=== PATIENT | male | born 1935 | race Caucasian/White ===

== ENCOUNTER 2023-09-16 14:08 | Inpatient (IN) | payer MEDICARE, OTHER, SELFPAY ==
[2023-09-16] VITALS (8 sets, daily range): BP systolic 108–149; BP diastolic 63–89; BMI 28.1
--- NOTE | 2023-09-16 11:36 | ED.GENMED ---
History of Present Illness
General
Chief Complaint: Breathing Problem
Source: patient
Exam Limitations: none
Time Seen by Provider: 09/16/23 11:09
Nursing documentation reviewed up to this point in time: agreed with
Travel History
Have you had any contact with someone who has COVID-19?: No
Do you have any symptoms of coronavirus? Fever > 100 degrees, chills, cough, shortness of breath, sore throat, loss of taste or smell, muscle aches, or headache?: Yes
Symptoms:: see triage note
History of Present Illness
History of Present Illness:
pt is a 87 y/o M with h/o afib s/p pacer, CHF on lasix 80 mg daily, cad, pulm htn,
here with sob
pt says he has been feeling a little wors th epast 2 days but today he started coughing a bit and then after being wheeled to the bathroom didn't have the strength to get up
has noticed increasing edema in legs
took his lasix this mornin 60 mg
no fever, chest pain, vomiting, syncope
pt was sent in by the doctor at his facility who thought he sounded full of fluid
Past History
Past History
ED Past Medical History: Arrthythmia (Atrial fib), CAD, CHF, COPD, HTN, Hypercholesterolemia, RI, Psychiatric (Depressio) and Other (Back pain, PNA, Bowel Obstruction, Renal calculus, Inguinal hernia, C2 fracture with right hand Numbness)
ED Past Surgical History: Cardiac (Pacemaker, Stents X 4) and Other (Parathyroidectomy)
Social History
Tobacco: Former smoker (Smoked a Pipe)
Alcohol: None
Drug: None
Personal:
Living: penitentiary
Employment: Retired
Family History
Family History: Other (Noncontributory)
Review of Systems
Review of Systems
Allergies reviewed?: Yes
All Other Systems: Not applicable
Phy Exam
Physical Exam
Physical Exam:
GENERAL: Alert , mild tachypnea
EYE: pupils equal and reactive
NECK: Supple
ENT: o/p clr, mmm.
CARDIAC: Paced, moderate edema bilateral lower extremities with some skin changes, erythema to the anterior tibial region
LUNGS: Diminished, Rales at his bases, mildly tachypneic,
ABDOMEN: Soft, without focal tenderness, no r/g, no cvat, normal bowel sounds
NEUROLOGICAL: Alert and oriented, no focal neuro deficits
SKIN: Warm and dry, skin intact.
MUSCULOSKELETAL: Mild to moderate edema edema, well perfused. neg eloisa's sign
PSYCH: Normal and appropriate interaction.
Scores
Heart Failure Risk
Heart Failure Risk Score: Not Applicable
Course
Orders/Labs/Results
Orders:
Orders
09/16/23
Electrocardiogram (*1) Stat
Reason for Study: Chest Pain
Comment: DONE
09/16/23 Lunch
Cholesterol Lowering
At Your Request: Full Participation
Does patient need a safe tray?: No
Fluid Restriction: 1500 mL/day (50 oz)
Cholesterol Lowering: Sodium, 2 Gram
09/16/23 11:35
Cardiac Monitoring- Treatment ONCE
CR Chest - 2 Views Urgent
Comment:
Reason For Exam: fatigue, cough, sob
09/16/23 11:39
COVID-19 Antigen Urgent
Source: Nasal Swab
Complete Blood Count/With Diff Urgent
Influenza A+B Rapid Molecular Urgent
DAWSON Source: Nasal Swab
Specimen Description:
09/16/23 12:09
Comprehensive Metabolic Panel Urgent
NT-proBNP Urgent
Troponin I Urgent
09/16/23 13:10
Furosemide [Lasix] 40 mg IV NOW STA
09/16/23 13:45
Admit/Transfer Patient As Directed
Co-Sign Provider:
Level of Care: Inpatient admission
Assign to:: Telemetry
Physician / Group: seymour/hospitalist
Diagnosis: AECHF
Reason for Telemetry: Acute Heart Failure
Date to Stop Telemetry: 09/19/23
Time to Stop Telemetry: 11:00
Reason for Hospitalization: aechf
Expected length of stay greater than two midnights?: Yes
ELOS- Estimated Length of Stay in days: 4
I certify the patient meets the requirements for IP care: Yes
09/16/23 13:48
Code Status As Directed
Resuscitation Status: Full Code
09/16/23 14:59
Echo 2D MMode Color/Doppler Routine
Reason for Study: heart failure
CARDIOLOGY CONSULT Routine
Consulting Provider: Jarrett Puga
Was physician already notified: Yes
09/16/23 15:22
Albuterol [ProAIR HFA INHALER] 2 puff INH R Q4HPRN PRN
Guaifenesin Dm (Sugar Free) [Safetussin Dm (Sugar/Alcohol Free)] 200 mg PO Q4HPRN PRN
Tramadol HCl [Ultram] 50 mg PO [id number] PRN
Zolpidem Tartrate [Ambien] 5 mg PO HSPRN PRN
cycloSPORINE [Restasis 0.05% Ophthalmic Emulsion] 1 drops BOTH EYES Q12H
09/16/23 15:22
HF DIETARY CONSULT Routine
HF EDUCATOR CONSULT Routine
Comment:
Activity As Directed
Activity Level: Out of Bed-Early Mobility
Intake/ Output As Directed
Frequency: Per unit guidelines
Patient Education As Directed
Type: CHF folder
Comment: give on admission. Document in Interdisciplinary Education record
Sleep Apnea Assessment by RN As Directed
Comment:
Physician Instructions:
Vital Signs As Directed
Frequency: Other
Additional Instructions:: Q12 or per unit guidelines if more frequent.
Weight As Directed
Frequency: Daily
Type of Scale: Standing Scale
Comment: Daily morning weight. If unable to stand, use balanced bed scale.
Weight As Directed
Frequency: Once
Type of Scale: Standing Scale
Comment: Upon Admission. If unable to stand, use balanced bed scale.
Pulse Ox/cont/shift [RESP] Routine
Quantity: 1
Special Instructions: Daily pulse oximetry at rest. If greater than 92% at rest also obtain pulse oximetry
while ambulating as tolerated.
DX Deep Vein Thrombosis Video Routine
09/16/23 16:00
Sildenafil Citrate [Revatio] 20 mg PO TID
09/16/23 16:15
Methylsalicylate/Menthol [BenGay-Like] See Dose Instructions TOPICAL BIDPRN PRN
09/16/23 18:34
Troponin I Q6H
Comment: at admission & every 6 hours x 2 (3 total), ECG to be done with each level
09/16/23 19:00
Furosemide [Lasix] 80 mg IV BID AT 0800,1600
09/16/23 20:00
Carvedilol [Coreg] 6.25 mg PO BID
Heparin 5,000 units SC Q12
09/17/23 00:14
Troponin I Q6H
Comment: at admission & every 6 hours x 2 (3 total), ECG to be done with each level
09/17/23 05:51
Basic Metabolic Panel IN AM
Complete Blood Count/With Diff IN AM
Magnesium IN AM
09/17/23 08:00
Allopurinol [Zyloprim] 100 mg PO DAILY
Aspirin Chewable [Low Strength Aspirin] 81 mg PO DAILY
Finasteride [Proscar] 5 mg PO DAILY
Pravastatin Sodium [Pravachol] 80 mg PO DAILY
Psyllium [Metamucil, Konsyl] 1 packet PO DAILY
09/18/23 06:00
Basic Metabolic Panel IN AM
09/19/23 06:00
Basic Metabolic Panel IN AM
09/19/23 11:00
DC Protocol for Telemetry ONCE
Abnormal Lab Results
09/16/23 09/16/23
11:39 12:09
RBC 3.80 L 10^6/uL
(4.70-6.10)
Hgb 11.9 L g/dL
(13.0-18.0)
Hct 36.0 L %
(39.0-52.0)
MCV 94.7 H fL
(80.0-94.0)
MCH 31.3 H pg
(27.0-31.0)
RDW 17.2 H %
(11.5-14.5)
MPV 11.7 H fL
(7.4-10.4)
Absolute Lymphs (auto) 0.4 L 10^3/uL
(1.2-3.4)
Neutrophils % 82.5 H %
(42.2-75.2)
Lymphocytes % 6.0 L %
(20.5-51.1)
BUN 57 H mg/dl
(9-20)
Creatinine 2.0 H mg/dL
(0.7-1.3)
Troponin I 0.118 H* ng/ml
Total Protein 5.3 L g/dl
(6.3-8.2)
Albumin 3.0 L g/dl
(3.5-5.0)
09/16/23 11:39
09/16/23 12:09
Vital Signs
Initial and Last Documented VS:
Initial Vital Signs
Temp Pulse Resp BP Pulse Ox
98.0 F 63 20 136/85 86
09/16/23 10:55 09/16/23 10:55 09/16/23 10:55 09/16/23 10:55 09/16/23 10:55
Last Documented Vital Signs
Temp Pulse Resp BP Pulse Ox
97.4 F 62 14 139/78 99
09/17/23 03:28 09/17/23 09:02 09/17/23 08:41 09/17/23 09:02 09/17/23 07:08
MDM/Problems Addressed
Differential Diagnosis Includes:
pna, chf, pulm edema
MDM/Problems Addressed:
alec meza 87 y/o F from heartis; h/o CHF on lasix with preserved EF; here with inc LE edema and sob the past 2 days, today was coughing and got wheeled to BR and then was too weak to get off toilet; has home o2 2L
86% RA, 96% on 2L, mildlhy tachypneic, diminished and rales b/l bases, symmetric edema LE;
no fever, wbc normal; cr 2.0 (bseline 1.9), trop 0.1 (usually 0.2), [place] 36769, cxr pulm edema; got oral lasix 60 mg po today, adding 40 mg iv x 1
*Critical Care Note
Total Time (30-74mins, 75-104mins- exclusive of procedures): Not Applicable
ED Attending Note
-
Portions of this chart may have been created with voice recognition software.� Occasional wrong word or��sound alike� substitutions may have occurred due to the inherent limitations of voice recognition software.
Discharge Plan
Departure
Patient Disposition: Admit
Date of Disposition: 09/16/23
Time of Disposition: 13:12
Admit to: Telemetry
Presentation/result/management discussed w/ accepting MD/DO: Hospitalist
Condition: Fair
Covid-19: Not Applicable
Discharge Problem:
Pulmonary edema
Interventions
Interventions:
*Risk Screen - Suicide Last Done: 09/16/23 10:55
*General Assessment Last Done: 09/16/23 10:55
*Neglect/Abuse Screening Last Done: 09/16/23 10:55
*ED COVID-19 Vaccine History Last Done: 09/16/23 10:55
*Nursing Disposition Last Done: 09/16/23 15:12
ED- Cardiac Assessment Last Done: 09/16/23 11:26
ED- Pulmonary Assessment Last Done: 09/16/23 11:26
Discharge Date and Time
Discharge Date/Time: 09/16/23 15:12
[2023-09-16 12:02] LABS: % Basophils 0.9 % (0-2); % Eosinophils 2.6 % (0-6); % Immature Granulocytes 0.2 % (0-0.5); % Monocytes 7.8 % (1.7-9.3); % Neutrophils 82.5 % (42.2-75.2); Absolute Basophils 0.1 10^3/uL (0-0.2); Absolute Eosinophils 0.2 10^3/uL (0-0.7); Absolute Lymphocytes 0.4 10^3/uL (1.2-3.4); Absolute Monocytes 0.5 10^3/uL (0.1-0.6); Absolute Neutrophils 4.8 10^3/uL (1.4-6.5); Hemoglobin 11.9 g/dL (13.0-18.0); Mean Corp Hgb Conc. 33.1 g/dL (33.0-37.0); Mean Corpuscular Hgb 31.3 pg (27.0-31.0); Mean Corpuscular Volume 94.7 fL (80.0-94.0); Mean Platelet Volume 11.7 fL (7.4-10.4); Nucleated Red Blood Cells % 0 % (-); Platelet Count 161 10^3/uL (130-400); Red Cell Dist. Width 17.2 % (11.5-14.5); White Blood Cell Count 5.9 10^3/uL (4.8-10.8)
[2023-09-16 12:30] LABS: COVID-19 Antigen Negative (Negative)
[2023-09-16 12:52] LABS: ALT (SGPT) 12 U/L (0-50); AST (SGOT) 25 U/L (17-59); Alkaline Phosphatase 108 U/L (38-126); Blood Urea Nitrogen 57 mg/dl (9-20); Calcium 9.3 mg/dl (8.4-10.2); Carbon Dioxide 24 mmol/L (22-30); Chloride 103 mmol/L (98-107); Estimated Creatinine Clearance 27 ml/min; Glucose 89 mg/dl (70-99); Potassium 4.3 mmol/L (3.5-5.1); Sodium 135 mmol/L (135-145); Total Bilirubin 0.8 mg/dl (0.2-1.3); Total Protein 5.3 g/dl (6.3-8.2)
[2023-09-16 12:58] LABS: NT-proBNP 17100 pg/ml; Troponin I 0.118 ng/ml
--- NOTE | 2023-09-16 13:34 | HPS.HSE ---
Addendum entered and electronically signed by Nick Nassar MD 09/16/23 14:24:
In regards for CODE STATUS patient stated he wanted to be comfortable and to call his son to confirm his CODE STATUS. Updated both sons over the phone in detail. Both son's confirmed patient is DNR/DNI. CODE STATUS changed.
Original Note:
Family Physician
-
Family Physician: Aleja Antoine DO
Chief Complaint
-
Weakness
History of Present Illness
87-year-old male with extensive past medical and cardiac history who is presenting with complaints of coughing and severe weakness. Patient said he sat in the bathroom was unable to get up due to severe weakness. Patient also complaining of severe
lower extremity edema. Also stating of abdominal distention. States of cough with intermittent sputum production. Denies any fevers or chills. Denies any lightheaded or dizziness. States remains on 2 L of oxygenation. Denies any recent changes
in his medication. In the ER patient was found to have proBNP of 17,000. Patient received 40 mg IV Lasix. Currently states trying to obtain a sputum sample. Denies any chest pain. Denies any nausea vomiting abdominal pain. Denies any
lightheaded or dizziness. Denies any problem with urinations or bowel movements.
Medical History
Past Medical History
Past Medical History: Reports Other
Additional Past Medical History:
Atrial fib permanent,
Pacemaker implantation
Chronic HFpEF
COPD
Primary hypertension
CAD
CKD stage III
Pulmonary hypertension
Chronic hypoxic respiratory insufficiency
Hyperlipidemia
BPH
Gout
Chronic ambulatory dysfunction
Past Surgical History: Reports Other
Additional Past Surgical History:
Pacemaker plantation
Parathyroidectomy
CAD status post stents
Social History
Tobacco: Former Smoker
Personal:
Living: Assisted Living
Family History
Family History: Not pertinent
Allergies / Home Medications
Allergies reflects when Allergies were last updated in [facility].
Home Medications with original date entered in [facility]
Allergy/Medication List:
Allergies
Allergy/AdvReac Type Severity Reaction Status Date / Time
latex Allergy Rash Verified 03/15/23 16:20
Sulfa (Sulfonamide Allergy Rash Verified 03/15/23 16:20
Antibiotics)
Home Medications
allopurinol 100 mg tablet 100 mg PO DAILY Gout 12/01/22
cyclosporine 0.05 % eye drops in a dropperette (Restasis) 1 drp BOTH EYES Q12H DRY EYES 12/01/22
docusate sodium 100 mg capsule (Colace) 100 mg PO DAILYPRN PRN CONSTIPATION 12/01/22
dutasteride 0.5 mg capsule 0.5 mg PO DAILY Urinary Issue 12/01/22
fluticasone propionate 50 mcg/actuation nasal spray,suspension 1 spray intranasal DAILYPRN PRN allergic rhinitis 12/01/22
hydrocortisone 1 % topical cream (Preparation H Hydrocortisone) 1 applic TN BIDPRN PRN HEMORRHOIDS 12/01/22
pravastatin 80 mg tablet 80 mg PO DAILY High Cholesterol 12/01/22
sildenafil (pulm.hypertension) 20 mg tablet 20 mg PO TID PULM HYPERTENSION 12/01/22
zolpidem 5 mg tablet (Ambien) 5 mg PO HS Sleep 12/01/22
aspirin 81 mg chewable tablet 81 mg PO DAILY Heart disease/condition #30 tabs 12/06/22
carvedilol 6.25 mg tablet 6.25 mg PO BID Heart Failure #60 tabs 12/06/22
acetaminophen 325 mg tablet 650 mg PO Q6HPRN PRN mild pain/fever 01/27/23
psyllium 1 packet PO DAILY Constipation 01/27/23
sacubitril 24 mg-valsartan 26 mg tablet (Entresto) 1 tab PO BID #60 tabs 03/17/23
albuterol sulfate 90 mcg/actuation aerosol inhaler 2 puff inhalation R Q4HPRN PRN sob 09/16/23
amoxicillin 500 mg capsule 2,000 mg PO DAILYPRN PRN 1 hr prior to dental procedures 09/16/23
bismuth subsalicylate 262 mg/15 mL oral suspension (Pepto-Bismol) 524 mg PO TIDPRN PRN upset stomach 09/16/23
dextromethorphan-guaifenesin 10 mg-100 mg/5 mL oral liquid 10 ml PO Q4H PRN cough 09/16/23
furosemide 80 mg tablet 80 mg PO DAILY 09/16/23
loperamide 2 mg tablet (Anti-Diarrheal (loperamide)) 2 mg PO Q8HPRN PRN diarrhea 09/16/23
menthol-herbal drugs lozenges (Ricola lozenges) 1 елена mucous membrane QIDPRN PRN cough 09/16/23
methyl salicylate-menthol topical cream 1 applic topical BID PRN upper back/post neck area 09/16/23
polyethylene glycol 3350 17 gram oral powder packet 17 g PO DAILY PRN constipation 09/16/23
tramadol 50 mg tablet 50 mg PO Q6H PRN mild pain 09/16/23
Review of Systems
-
A 12 point ROS was completed and negative except as noted: Yes
Physical Exam
Vital Signs
Vital Signs
Temp Pulse Resp BP Pulse Ox
98.0 F 61 22 127/79 100
09/16/23 10:55 09/16/23 12:45 09/16/23 12:45 09/16/23 12:00 09/16/23 12:45
Physical Exam
General: Well Developed, Well Nourished and No Apparent Distress
HEENT: NormoCephalic, Moist mucous membranes, Atraumatic and Oxygen
Respiratory: Rhonchi
Cardiac: S1/S2 and Regular Rhythm; No Murmur or Rub
GI: Soft, Non Tender, Non Distended and Normal Bowel Sounds; No Organomegaly
Rectal: Deferred by Provider
Musculoskeletal: No Clubbing, No Cyanosis, Edema, Left Lower Extremity, Edema, Right Lower Extremity and No Edema
Skin: No Rash
Neuro: Awake, AO x 3, No Motor Deficits and Nonfocal/grossly intact
Psych: Calm
Laboratory Results
-
09/16/23 11:39
09/16/23 12:09
Laboratory Results
Total Bilirubin 0.8 mg/dl (0.2-1.3) 09/16/23 12:09
AST 25 U/L (17-59) 09/16/23 12:09
ALT 12 U/L (0-50) 09/16/23 12:09
Alkaline Phosphatase 108 U/L (38-126) 09/16/23 12:09
Troponin I 0.118 ng/ml H* 09/16/23 12:09
Impression/Plan
-
#Acute on chronic diastolic heart failure exacerbation
#Coronary artery disease status post stents
Start patient on 60 mg of IV Lasix twice daily
Monitor creatinine closely
proBNP noted
Chest x-ray pending
Check echocardiogram
Hold Entresto to allow for permissive hypertension with diuresis
Strict I's and O's
Daily weights
Cardiology evaluation
# Elevated troponin likely in the setting of acute heart failure exacerbation, CKD, hypoxemia
Continue to trend troponin
Continue with aspirin
EKG with ventricular paced rhythm
No chest pain
#Permanent atrial fibrillation
Pacemaker implantation
Continue device interrogation
Continue with carvedilol and aspirin
Not on anticoagulants due to falls and epistaxis
#CKD3
Monitor creatinine closely with diuresis
#COPD not in acute exacerbation
Continue with inhalers
Pulmonary hypertension
Continue home regimen sildenafil 20 mg 3 times daily
Hyperlipidemia
Continue statin
#BPH
continue with dutasteride 0.5 mg daily
#Gout
Continue allopurinol 100 mg daily
#Chronic ambulatory dysfunction
- PT/OT/case management
#DVT ppx: SC heparin
#Code: Full code
I spent a total of 79 minutes with the patient or on the floor. More than 50% of this time involved counseling and coordination of care.
[2023-09-16] MEDS: LASIX 40 MG IV (14:02)
--- NOTE | 2023-09-16 15:09 | CON.CAR ---
Addendum entered and electronically signed by Jarrett Puga MD 09/16/23 16:49:
I saw and examined the patient.
The Cooker Chip's note was reviewed and I agree with the note.
Comment:
GEN: No distress, awake, Ox3
HEENT: supple, anicteric, mmm
LUNGS: CTA, no wheezes/rales
CV: Reg, S1/S2, 1/6 syst LSB, S3+
ABD: soft, BS+, NT/ND
EXT: ++ edema
NEURO: Gross non-focal
SKIN: No rash
plan:
He has an extensive past medical history including chronic heart failure preserved ejection fraction, permanent A-fib, pacemaker, coronary disease, COPD on home oxygen, hypertension, hyperlipidemia, and CKD 3. He presents with acute heart failure
with a 30 pound weight gain over the past several months. proBNP is markedly elevated at 17,000 with chest x-ray consistent with congestive heart failure with effusions. EKG is V-paced with underlying atrial fibrillation.
His creatinine is up to 2.0. Continue carvedilol. Hold Entresto for now. Agree with aggressive diuresis with 60 mg IV twice daily and follow kidney function.
His atrial fibrillation is permanent he is not anticoagulated because of a history of bleeding.
Hopefully kidney function settles and we can restart Entresto. Could consider Jardiance as well.
Continue sildenafil.
Original Note:
Consultation
Consultation Request
Date/Time Consultation Requested: 09/16/2023
Date/Time Consultation Performed: 09/16/2023
Requesting Provider: Dr. Nassar
Performing Provider: Patricia Webster PA-C for Dr. Puga
Reason for Consultation: Shortness of breath, weight gain, heart failure
Medical History
-
History of Present Illness:
87-year-old male with a history for permanent A-fib, PPM, coronary artery disease, chronic HFpEF, COPD/pulmonary hypertension on chronic oxygen therapy, hypertension, hyperlipidemia, HI, depression, back pain polyp, nonobstructing, kidney stones,
inguinal hernia presents with short of breath, weight gain and cough for several days. He was seen by outpatient cardiology in July and was thought to have evidence of volume overload and Lasix was temporarily increased at that time. In mid August
his half-way community contacted the office again for evidence of volume overload and Lasix was increased temporarily for a second time. However his symptoms have continued to progress prompting him to come to the emergency department. proBNP
17,100, chest x-ray cardiomegaly with mild to moderate heart failure with small bilateral pleural effusions. EKG showed ventricular paced rhythm. Creatinine stable at 11.9, creatinine 2.0. At time of this evaluation patient resting in bed wearing
oxygen. He continues to complain of cough and intermittent shortness of breath. He denies chest pain.
PMH:
Chronic heart failure with preserved EF
CAD
s/p prior HI in 2008 and 2016 - details unclear
Permanent atrial fibrillation
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
s/p generator change
Pulmonary hypertension
HTN
HLD
COPD
h/o recurrent epistaxis
recurrent falls with recent cervical fracture
Moderate mitral regurgitation
Past Medical History
Past Medical History: Other (See HPI)
Past Surgical History: Cardiac (Prior cardiac stents in 2008, 2016, PPM) and Other (parathyroidectomy)
Social History
Tobacco: Former Smoker
Alcohol: None
Drug: None
Personal:
Living: Assisted Living ([facility])
Employment: Retired
Family History
Family History: Cancer
Allergies / Home Medications
Allergy/AdvReac Type Severity Reaction Status Date / Time
latex Allergy Rash Verified 03/15/23 16:20
Sulfa (Sulfonamide Allergy Rash Verified 03/15/23 16:20
Antibiotics)
�Medication �Instructions �Recorded �Confirmed �Type
allopurinol 100 mg tablet 100 mg PO DAILY Gout 12/01/22 09/16/23 History
cyclosporine 0.05 % eye drops in a 1 drp BOTH EYES Q12H DRY EYES 12/01/22 09/16/23 History
dropperette (Restasis)
docusate sodium 100 mg capsule 100 mg PO DAILYPRN PRN CONSTIPATION 12/01/22 09/16/23 History
(Colace)
dutasteride 0.5 mg capsule 0.5 mg PO DAILY Urinary Issue 12/01/22 09/16/23 History
fluticasone propionate 50 1 spray intranasal DAILYPRN PRN 12/01/22 09/16/23 History
mcg/actuation nasal allergic rhinitis
spray,suspension
hydrocortisone 1 % topical cream 1 applic UT BIDPRN PRN HEMORRHOIDS 12/01/22 09/16/23 History
(Preparation H Hydrocortisone)
pravastatin 80 mg tablet 80 mg PO DAILY High Cholesterol 12/01/22 09/16/23 History
sildenafil (pulm.hypertension) 20 20 mg PO TID PULM HYPERTENSION 12/01/22 09/16/23 History
mg tablet
zolpidem 5 mg tablet (Ambien) 5 mg PO HS Sleep 12/01/22 09/16/23 History
aspirin 81 mg chewable tablet 81 mg PO DAILY Heart 12/06/22 09/16/23 Rx
disease/condition #30 tabs
carvedilol 6.25 mg tablet 6.25 mg PO BID Heart Failure #60 12/06/22 09/16/23 Rx
tabs
acetaminophen 325 mg tablet 650 mg PO Q6HPRN PRN mild 01/27/23 09/16/23 History
pain/fever
psyllium 1 packet PO DAILY Constipation 01/27/23 09/16/23 History
sacubitril 24 mg-valsartan 26 mg 1 tab PO BID #60 tabs 03/17/23 09/16/23 Rx
tablet (Entresto)
albuterol sulfate 90 mcg/actuation 2 puff inhalation R Q4HPRN PRN sob 09/16/23 09/16/23 History
aerosol inhaler
amoxicillin 500 mg capsule 2,000 mg PO DAILYPRN PRN 1 hr 09/16/23 09/16/23 History
prior to dental procedures
bismuth subsalicylate 262 mg/15 mL 524 mg PO TIDPRN PRN upset stomach 09/16/23 09/16/23 History
oral suspension (Pepto-Bismol)
dextromethorphan-guaifenesin 10 10 ml PO Q4H PRN cough 09/16/23 09/16/23 History
mg-100 mg/5 mL oral liquid
furosemide 80 mg tablet 80 mg PO DAILY 09/16/23 09/16/23 History
loperamide 2 mg tablet 2 mg PO Q8HPRN PRN diarrhea 09/16/23 09/16/23 History
(Anti-Diarrheal (loperamide))
menthol-herbal drugs lozenges 1 елена mucous membrane QIDPRN PRN 09/16/23 09/16/23 History
(Ricola lozenges) cough
methyl salicylate-menthol topical 1 applic topical BID PRN upper 09/16/23 09/16/23 History
cream back/post neck area
polyethylene glycol 3350 17 gram 17 g PO DAILY PRN constipation 09/16/23 09/16/23 History
oral powder packet
tramadol 50 mg tablet 50 mg PO Q6H PRN mild pain 09/16/23 09/16/23 History
Review of Systems
-
History Source: Patient
All other systems: Negative unless noted
Physical Exam
Vital Signs
Temp Pulse Resp BP Pulse Ox
98.0 F 61 22 127/79 100
09/16/23 10:55 09/16/23 12:45 09/16/23 12:45 09/16/23 12:00 09/16/23 12:45
GEN: No distress, awake, Ox3
HEENT: supple, anicteric, mmm; very hard of hearing
LUNGS: carackles at bases otherwise CTA, no wheezes/rales
CV: Reg, S1/S2, 2/6 murmur, no rub or gallops
ABD: soft, BS+, NT/ND
EXT: +1 bilateral lower extremity edema right greater than left, right leg with gauze wrap from wound. Left leg with Band-Aid on calf, red skin changes consistent with chronic stasis
NEURO: Gross non-focal
SKIN: No rash, warm, dry, pink
Lab Results
09/16/23 11:39
09/16/23 12:09
Troponin I 0.118 ng/ml H* 09/16/23 12:09
Xuj-P-Ychqfpnzhce Pept 93214 pg/ml 09/16/23 12:09
Impression / Plan
-
Family Physician:� Aleja Antoine, DO
House Rn: Dr. Story
Impression:
Presents 09/16/2023 with cough, weakness, weight gain, shortness of breath and lower extremity edema
Acute on chronic HFpEF, proBNP 55765
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
abnormal troponin, suspect nonischemic myocardial injury secondary to acute heart failure exacerbation
CAD
s/p prior HI in 2008 and 2016 - details unclear
Permanent atrial fibrillation
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
s/p generator change
Pulmonary hypertension
HTN
HLD
COPD
h/o recurrent epistaxis
recurrent falls with recent cervical fracture
Moderate mitral regurgitation
Echo at [facility] 10/13/2022: EF 55-60%, mild
Echo 12/02/2022:�EF 65%, mod MR, mitral sclerosis without stenosis and mean gradient 2 mmHg, aortic sclerosis without stenosis and mild aortic regurgitation
Plan:
-Presents 09/16/2023 with cough, weakness, weight gain, shortness of breath and lower extremity edema
-ProBNP 93405 which is elevated however better than previous admissions where proBNP was greater than 35,000
-Given 40 mg IV in ED with good response.
-Continue to follow daily weights, I&Os.
-Creat elevated at 2.0 on admission, baseline appearing to be around 1.7-1.8. Continue to monitor/trend
-In past patient and son felt he has less frequent HF exacerbations while on Entresto. Can place on hold given CHAD but ideally would like to see pt back on if renal function and BP allow
-CHF education
-Abnormal troponin elevation, initial 0.118 which is lower than previous admissions. Suspect non-ischemic myocardial injury due to acute heart failure. Trend to peak
-Continue medical therapy with Coreg 6.25mg BID.
-H/o CAD - no chest pain and ECG paced. Now DNR continue conservative medical management w/ Coreg, pravastatin and aspirin.
-On sildenafil 20mg TID for history of pulmonary hypertension.
-On chronic home 2 L as outpatient.
-Permanent atrial fibrillation with ventricular pacing. Device interrogated in office 08/02/23 with stable leads and thresholds. Not on OAC due to recurrent severe epistaxis and history of falls. Continue ASA 81 mg
Patient is now DNR/DNI which is reasonable given advanced age and multiple hospital admissions
87-year-old male with a history for permanent A-fib, PPM, coronary artery disease, chronic HFpEF, COPD/pulmonary hypertension on chronic oxygen therapy, hypertension, hyperlipidemia, HI, depression, back pain polyp, nonobstructing, kidney stones,
inguinal hernia presents with short of breath, weight gain and cough for several days. He was seen by outpatient cardiology in July and was thought to have evidence of volume overload and Lasix was temporarily increased at that time. In mid August
his half-way community contacted the office again for evidence of volume overload and Lasix was increased temporarily for a second time. However his symptoms have continued to progress prompting him to come to the emergency department. proBNP
17,100, chest x-ray cardiomegaly with mild to moderate heart failure with small bilateral pleural effusions. EKG showed ventricular paced rhythm. Creatinine stable at 11.9, creatinine 2.0. At time of this evaluation patient resting in bed wearing
oxygen. He continues to complain of cough and intermittent shortness of breath. He denies chest pain.
Data Reviewed
-
EKG: Report Reviewed by me, Discussed with Physician and Discussed with Patient
Radiology: Report Reviewed by me, Discussed with Physician and Discussed with Patient
Labs: Discussed with Physician, Discussed with Nurse and Discussed with Patient
Old Records: Reviewed
--- NOTE | 2023-09-16 15:49 | PTCARENOTE ---
Patient admitted from ER into room 411-01. Vital signs stable. Perineal care provided. Patient incontinent of urine. Condom cath #25 placed. Oriented to room, use of call blanco, and television and bed controls. Patient verbalizes understanding.
Patient is [place] without hearing aides. Understands plan of care and denies questions at this time.
[2023-09-16] MEDS: RESTASIS 0.05% OPHTHALMIC EMULSION 1 DROPS BOTH EYES ×2 (16:12→22:17)
[2023-09-16] MEDS: SAFETUSSIN DM (SUGAR/ALCOHOL FREE) 200 MG PO (16:12)
[2023-09-16] MEDS: REVATIO 20 MG PO ×2 (16:13→22:08)
[2023-09-16] MEDS: LASIX 80 MG IV (18:31)
[2023-09-16] MEDS: COREG 6.25 MG PO (20:40)
[2023-09-16] MEDS: HEPARIN 5000 UNITS SC (20:40)
[2023-09-16] MEDS: AMBIEN 2.5 MG PO (22:09)
[2023-09-16] MEDS: TYLENOL 650 MG PO (23:20)
[2023-09-17] VITALS (8 sets, daily range): BP systolic 113–138; BP diastolic 62–78; BMI 27.7
[2023-09-17 00:48] LABS: Troponin I 0.101 ng/ml
[2023-09-17 06:26] LABS: % Basophils 1.1 % (0-2); % Eosinophils 3.6 % (0-6); % Immature Granulocytes 0.2 % (0-0.5); % Lymphocytes 9.3 % (20.5-51.1); % Monocytes 8.4 % (1.7-9.3); % Neutrophils 77.4 % (42.2-75.2); Absolute Basophils 0.1 10^3/uL (0-0.2); Absolute Eosinophils 0.2 10^3/uL (0-0.7); Absolute Lymphocytes 0.4 10^3/uL (1.2-3.4); Absolute Monocytes 0.4 10^3/uL (0.1-0.6); Absolute Neutrophils 3.4 10^3/uL (1.4-6.5); Hematocrit 33.4 % (39.0-52.0); Hemoglobin 11.3 g/dL (13.0-18.0); Mean Corp Hgb Conc. 33.8 g/dL (33.0-37.0); Mean Corpuscular Volume 91.5 fL (80.0-94.0); Nucleated Red Blood Cells % 0 % (-); Red Blood Cell Count 3.65 10^6/uL (4.70-6.10); Red Cell Dist. Width 16.5 % (11.5-14.5); White Blood Cell Count 4.4 10^3/uL (4.8-10.8)
[2023-09-17 06:56] LABS: Blood Urea Nitrogen 56 mg/dl (9-20); Carbon Dioxide 22 mmol/L (22-30); Chloride 106 mmol/L (98-107); Estimated Creatinine Clearance 27 ml/min; Glucose 107 mg/dl (70-99); Magnesium 2.7 mg/dl (1.6-2.3); Potassium 4.5 mmol/L (3.5-5.1); Sodium 134 mmol/L (135-145)
[2023-09-17 07:09] LABS: Platelet Count 122 10^3/uL (130-400)
[2023-09-17] MEDS: COREG 6.25 MG PO ×2 (09:02→20:00)
[2023-09-17] MEDS: HEPARIN 5000 UNITS SC ×2 (09:02→20:01)
[2023-09-17] MEDS: RESTASIS 0.05% OPHTHALMIC EMULSION 1 DROPS BOTH EYES ×2 (09:03→20:00)
[2023-09-17] MEDS: LASIX 80 MG IV (09:03)
[2023-09-17] MEDS: METAMUCIL, KONSYL 1 PACKET PO (09:03)
[2023-09-17] MEDS: PROSCAR 5 MG PO (09:03)
[2023-09-17] MEDS: PRAVACHOL 80 MG PO (09:03)
[2023-09-17] MEDS: LOW STRENGTH ASPIRIN 81 MG PO (09:03)
[2023-09-17] MEDS: REVATIO 20 MG PO ×3 (09:04→22:11)
[2023-09-17] MEDS: ZYLOPRIM 100 MG PO (09:04)
[2023-09-17] MEDS: FLUSH (NSS) 2 FLUSH IV (09:04)
[2023-09-17] MEDS: TYLENOL 650 MG PO ×2 (09:08→22:38)
--- NOTE | 2023-09-17 10:07 | W.PN.CARDCBS ---
Today's Communication / Plan
-
Continue diuresis while following blood pressure, renal function and electrolytes closely.
Can consider reinitiation of Entresto prior to discharge.
Impression / Plan
-
Family Physician:� Aleja Antoine, DO
Home School Teacher: Dr. Story
Impression:
Presents 09/16/2023 with cough, weakness, weight gain, shortness of breath and lower extremity edema
Acute on chronic HFpEF, proBNP 11660
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
abnormal troponin, suspect nonischemic myocardial injury secondary to acute heart failure exacerbation
CAD
s/p prior [place] in 2008 and 2016 - details unclear
Permanent atrial fibrillation
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
s/p generator change
Pulmonary hypertension
HTN
HLD
COPD
h/o recurrent epistaxis
recurrent falls with recent cervical fracture
Moderate mitral regurgitation
Echo at [facility] 10/13/2022: EF 55-60%, mild
Echo 12/02/2022:�EF 65%, mod MR, mitral sclerosis without stenosis and mean gradient 2 mmHg, aortic sclerosis without stenosis and mild aortic regurgitation
Plan:
-Presents with acute decompensated congestive heart failure (HFpEF) and volume overload, ProBNP 32969 which is elevated however better than previous admissions where proBNP was greater than 35,000
Continue diuresis, currently on Lasix 80 mg IV twice daily. Weight is down 3 pounds over past 24 hours and fluid balance negative. Creatinine stable at 2.0 overnight
Continue to follow daily weights, I&Os and renal function (known chronic kidney disease with baseline creatinine of approximately 1.8).
Entresto on hold given renal insufficiency mild acute insufficiency on chronic insufficiency.
Son felt he has had less frequent HF exacerbations while on Entresto.
Will attempt to resume Entresto this hospital stay as we follow renal function and blood pressure.
Continue medical therapy with Coreg 6.25mg BID
CHF education
-Abnormal troponin elevation, initial 0.118 now down to 0.101. Suspect non-ischemic myocardial injury due to acute heart failure. H/o CAD - no chest pain and ECG paced.
Now DNR continue conservative medical management w/ Coreg, pravastatin and aspirin.
-On sildenafil 20mg TID for history of pulmonary hypertension.
-On chronic home 2 L as outpatient.
-Permanent atrial fibrillation with ventricular pacing.
Not on OAC due to recurrent severe epistaxis and history of falls. Continue ASA 81 mg
-Permanent pacemaker.
Device interrogated in office 08/02/23 with stable leads and thresholds of the Protalextronic device.
Patient is now DNR/DNI which is reasonable given advanced age and multiple hospital admissions
Total time spent today was 50 minutes in preparing to see the patient, seeing the patient and coordination of care. This included review of recent laboratory evaluations, cardiac testing, imaging studies, primary care records, specialty
consultations, hospital records, as well as personally interviewing and examining the patient, which included discussion of their tests, review/ordering medications as well as counseling.
87-year-old male with a history for permanent A-fib, PPM, coronary artery disease, chronic HFpEF, COPD/pulmonary hypertension on chronic oxygen therapy, hypertension, hyperlipidemia, [place], depression, back pain polyp, nonobstructing, kidney stones,
inguinal hernia presents with short of breath, weight gain and cough for several days. He was seen by outpatient cardiology in July and was thought to have evidence of volume overload and Lasix was temporarily increased at that time. In mid August
his fdc community contacted the office again for evidence of volume overload and Lasix was increased temporarily for a second time. However his symptoms have continued to progress prompting him to come to the emergency department. proBNP
17,100, chest x-ray cardiomegaly with mild to moderate heart failure with small bilateral pleural effusions. EKG showed ventricular paced rhythm. Creatinine stable at 11.9, creatinine 2.0. At time of this evaluation patient resting in bed wearing
oxygen. He continues to complain of cough and intermittent shortness of breath. He denies chest pain.
Progress Note - Home School Teacher
Subjective
Date of Service: September 17, 2023
He describes that his breathing is 'all right'. Denies chest pain shortness of breath palpitations or dizziness.
Objective
Labs:
09/17/23 05:51
09/17/23 05:51
Labs
Hgb 11.3 g/dL (13.0-18.0) L 09/17/23 05:51
Hct 33.4 % (39.0-52.0) L 09/17/23 05:51
Plt Count 122 10^3/uL (130-400) L D 09/17/23 05:51
Sodium 134 mmol/L (135-145) L 09/17/23 05:51
Potassium 4.5 mmol/L (3.5-5.1) 09/17/23 05:51
BUN 56 mg/dl (9-20) H 09/17/23 05:51
Creatinine 2.0 mg/dL (0.7-1.3) H 09/17/23 05:51
Glucose 107 mg/dl (70-99) H 09/17/23 05:51
Troponins
09/16/23 09/16/23 09/16/23
11:39 12:09 18:34
Troponin I Cancelled 0.118 H* 0.120 H*
09/17/23
00:14
Troponin I 0.101 H*
Vital Signs and I&O:
Vital Signs
Temp Pulse Resp BP Pulse Ox
97.4 F 62 14 139/78 99
09/17/23 03:28 09/17/23 09:02 09/17/23 08:41 09/17/23 09:02 09/17/23 07:08
Vital Signs
Temp Pulse Resp BP Pulse Ox
97.4 F 62 14 139/78 99
09/17/23 03:28 09/17/23 09:02 09/17/23 08:41 09/17/23 09:02 09/17/23 07:08
Intake & Output
09/15/23 09/16/23 09/17/23 09/18/23
06:59 06:59 06:59 06:59
Output Total 1270 / 1270
Balance -1270 / -1270
Physical Exam
Physical Exam
Elderly gentleman, no acute distress.
Regular rate and rhythm normal S1 and S2, no S3 no S4 there is a grade 1/6 apical holosystolic murmur no rubs.
Lungs are clear to auscultation bilaterally although there is reduced breath sounds at the left lower base. No wheezes or rhonchi. No rales.
Lower extremities with +2 pretibial edema bilaterally
--- NOTE | 2023-09-17 12:45 | W.PN.HOSP.TC ---
Today's Communication/Plan
-
.
Assessment / Plan
Assessment / Plan
Physical Exam
General: Chronically ill looking, No Apparent Distress
HEENT: Normocephalic, Moist mucous membranes, Atraumatic and Oxygen. Hard hearing.
Respiratory: less rales. Limited, no wheezes.
Cardiac: S1/S2
GI: Soft, Non Tender, Non Distended and Normal Bowel Sounds; No Organomegaly
Rectal: No rectal bleeding.
Musculoskeletal: No Clubbing, No Cyanosis, Edema, Left Lower Extremity, Edema, Right Lower Extremity and No Edema
Skin: No Rash
Neuro: Awake, AO to self and surroundings. Weak in general but followed commands.
Psych: Calm
#Acute on chronic diastolic heart failure exacerbation
#Coronary artery disease status post stents
He is not worsening. No sob
Lasix 80 IV twice daily, change back to 60 mg BID since SBP is trending down
Monitor creatinine closely
proBNP elevated
Chest x-ray Cardiomegaly and mild to moderate CHF with small bilateral effusions.
Resume Entresto
Strict I's and O's
Daily weights
Cardiology evaluation
# Elevated troponin, nonischemic myocardial injury secondary to acute heart failure exacerbation
No chest pain or distress
Continue with aspirin
EKG with ventricular paced rhythm
No chest pain
#Permanent atrial fibrillation
Permanent pacemaker.
Device interrogated in office 08/02/23 with stable leads and thresholds of the Medtronic device.
Continue with carvedilol and aspirin
Not on anticoagulants due to falls and epistaxis
#CKD3b
Monitor creatinine closely with diuresis. Stable creatinine
#COPD not in acute exacerbation
Continue with inhalers
Pulmonary hypertension
Continue home regimen sildenafil 20 mg 3 times daily
Hyperlipidemia
Continue statin
# Chronic hypoxic respiratory failure on home O2
sildenafil 20mg TID for history of pulmonary hypertension.
# hyponatremia
# thrombocytopenia
#BPH
continue with dutasteride 0.5 mg daily
#Gout
Continue allopurinol 100 mg daily
#Chronic ambulatory dysfunction
- PT/OT/case management
#DVT ppx: SC heparin
#Code: DNR/DNI which is reasonable given advanced age and multiple hospital admissions
Total time spent to see the patient, examine the patient, review data and lab results, discuss treatment plan with patient, nursing staff around 55 minutes
Anticipated Discharge: > 48 hours
Subjective/Interval History
-
Date of Service: September 17, 2023
Objective Data
-
Labs:
Laboratory Results
09/17/23
05:51
WBC 4.4 L
Hgb 11.3 L
Hct 33.4 L
Plt Count 122 L D
Sodium 134 L
Potassium 4.5
Chloride 106
Carbon Dioxide 22
BUN 56 H
Creatinine 2.0 H
Glucose 107 H
Calcium 9.0
Vital Signs:
Vital Signs
Temp Pulse Resp BP Pulse Ox
97.4 F 61 18 113/62 99
09/17/23 03:28 09/17/23 11:44 09/17/23 11:44 09/17/23 11:44 09/17/23 11:44
I&O
09/16/23 09/17/23 09/18/23
06:59 06:59 06:59
Output Total 1270 / 1270
Balance -1270 / -1270
[2023-09-17] MEDS: ProAIR HFA INHALER 2 PUFF INH ×2 (15:07→22:29)
[2023-09-17] MEDS: LASIX 60 MG IV (16:13)
--- NOTE | 2023-09-17 16:21 | CM ---
[facility] from [facility] with Dx CHF. Room air. Receiving IV Lasix.
Spoke with patient's son Ronnie;
the patient has resided at [facility] since last November.
He has been alert/oriented but very [place], and cannot place his own hearing aides due to poor hand dexterity.
Son states patient also has poor strength in his legs and he feels that the patient has deteriorated in the last few years.
He is assisted with ADLs and is not ambulatory - he is w/c bound.
The patient's DME are a w/c and [employer] portable O2.
The son thinks his father has been getting PT/OT through [facility] agency [facility].
No prior SNF.
PCP - Aleja Antoine
Pharmacy - [facility]
Message to Dr Parada requesting PT/OT Evals.
Plan follow up after PT/OT Evals.
[2023-09-17] MEDS: ENTRESTO 24 MG/26 MG 1 TAB PO (20:00)
[2023-09-17] MEDS: AMBIEN 2.5 MG PO (22:12)
[2023-09-18 03:50] VITALS: BP 121/68
[2023-09-18] MEDS: TYLENOL 650 MG PO ×3 (05:59→21:49)
[2023-09-18 06:00] VITALS: BMI 27.4
[2023-09-18 07:00] VITALS: BP 141/79
[2023-09-18 08:12] LABS: Blood Urea Nitrogen 58 mg/dl (9-20); Calcium 9.2 mg/dl (8.4-10.2); Carbon Dioxide 27 mmol/L (22-30); Chloride 103 mmol/L (98-107); Estimated Creatinine Clearance 29 ml/min; Glucose 99 mg/dl (70-99); Potassium 4.1 mmol/L (3.5-5.1); Sodium 136 mmol/L (135-145); eGFR 36.21
--- NOTE | 2023-09-18 09:00 | W.PN.CARDCBS ---
Today's Communication / Plan
-
Continue diuresis, currently on Lasix 80 mg IV twice daily.
Will likely benefit from another day of intravenous diuresis and then consideration for transition to oral diuretic within the next 24 hours
Will resume Entresto today
Impression / Plan
-
Family Physician:� Aleja Antoine, DO
Plodding Operator: Dr. Story
Impression:
Presents 09/16/2023 with cough, weakness, weight gain, shortness of breath and lower extremity edema
Acute on chronic HFpEF, proBNP 69189
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
abnormal troponin, suspect nonischemic myocardial injury secondary to acute heart failure exacerbation
CAD
s/p prior MT in 2008 and 2016 - details unclear
Permanent atrial fibrillation
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
s/p generator change
Pulmonary hypertension
HTN
HLD
COPD
h/o recurrent epistaxis
recurrent falls with recent cervical fracture
Moderate mitral regurgitation
Echo at [facility] 10/13/2022: EF 55-60%, mild
Echo 12/02/2022:�EF 65%, mod MR, mitral sclerosis without stenosis and mean gradient 2 mmHg, aortic sclerosis without stenosis and mild aortic regurgitation
Plan:
-Presents with acute decompensated congestive heart failure (HFpEF) and volume overload, ProBNP 01560 which is elevated however better than previous admissions where proBNP was greater than 35,000
Continue diuresis, currently on Lasix 80 mg IV twice daily. Weight 185#, down 2 pounds over past 24 hours (down 5 lbs from adm) and fluid balance negative. Creat down to baseline (1.8). JVP is improved.
Will likely benefit from another day of intravenous diuresis and then consideration for transition to oral diuretic within the next 24 hours
Continue to follow daily weights, I&Os and renal function (known chronic kidney disease with baseline creatinine of approximately 1.8).
Entresto had been on hold given renal insufficiency mild acute insufficiency on chronic insufficiency.
Son felt he has had less frequent HF exacerbations while on Entresto.
Will resume Entresto today and follow renal function (would not be surprising to have slight bump in creatinine) and blood pressure.
Continue medical therapy with Coreg 6.25mg BID
CHF education
-Abnormal troponin elevation, initial 0.118 now down to 0.101. Suspect non-ischemic myocardial injury due to acute heart failure. H/o CAD - no chest pain and ECG paced.
Now DNR continue conservative medical management w/ Coreg, pravastatin and aspirin.
-On sildenafil 20mg TID for history of pulmonary hypertension.
-On chronic home 2 L as outpatient.
-Permanent atrial fibrillation with ventricular pacing.
Not on OAC due to recurrent severe epistaxis and history of falls. Continue ASA 81 mg
-Permanent pacemaker.
Device interrogated in office 08/02/23 with stable leads and thresholds of the [employer] device.
Patient is now DNR/DNI which is reasonable given advanced age and multiple hospital admissions
Total time spent today was 50 minutes in preparing to see the patient, seeing the patient and coordination of care. This included review of recent laboratory evaluations, cardiac testing, imaging studies, primary care records, specialty
consultations, hospital records, as well as personally interviewing and examining the patient, which included discussion of their tests, review/ordering medications as well as counseling.
87-year-old male with a history for permanent A-fib, PPM, coronary artery disease, chronic HFpEF, COPD/pulmonary hypertension on chronic oxygen therapy, hypertension, hyperlipidemia, MT, depression, back pain polyp, nonobstructing, kidney stones,
inguinal hernia presents with short of breath, weight gain and cough for several days. He was seen by outpatient cardiology in July and was thought to have evidence of volume overload and Lasix was temporarily increased at that time. In mid August
his halfway community contacted the office again for evidence of volume overload and Lasix was increased temporarily for a second time. However his symptoms have continued to progress prompting him to come to the emergency department. proBNP
17,100, chest x-ray cardiomegaly with mild to moderate heart failure with small bilateral pleural effusions. EKG showed ventricular paced rhythm. Creatinine stable at 11.9, creatinine 2.0. At time of this evaluation patient resting in bed wearing
oxygen. He continues to complain of cough and intermittent shortness of breath. He denies chest pain.
Progress Note - Plodding Operator
Subjective
Date of Service: September 18, 2023
He tells me he is feeling much better over the past couple of days. No chest pain or shortness of breath at rest. He has been up and ambulating to the bathroom.
Objective
Labs:
09/17/23 05:51
09/18/23 06:09
Labs
Hgb 11.3 g/dL (13.0-18.0) L 09/17/23 05:51
Hct 33.4 % (39.0-52.0) L 09/17/23 05:51
Plt Count 122 10^3/uL (130-400) L D 09/17/23 05:51
Sodium 136 mmol/L (135-145) 09/18/23 06:09
Potassium 4.1 mmol/L (3.5-5.1) 09/18/23 06:09
BUN 58 mg/dl (9-20) H 09/18/23 06:09
Creatinine 1.8 mg/dL (0.7-1.3) H 09/18/23 06:09
Glucose 99 mg/dl (70-99) 09/18/23 06:09
Troponins
09/16/23 09/16/23 09/16/23
11:39 12:09 18:34
Troponin I Cancelled 0.118 H* 0.120 H*
09/17/23
00:14
Troponin I 0.101 H*
Vital Signs and I&O:
Vital Signs
Temp Pulse Resp BP Pulse Ox
98.7 F 71 18 141/79 100
09/18/23 07:00 09/18/23 07:00 09/18/23 07:00 09/18/23 07:00 09/18/23 07:00
Vital Signs
Temp Pulse Resp BP Pulse Ox
98.7 F 71 18 141/79 100
09/18/23 07:00 09/18/23 07:00 09/18/23 07:00 09/18/23 07:00 09/18/23 07:00
Intake & Output
09/16/23 09/17/23 09/18/23 09/19/23
06:59 06:59 06:59 06:59
Intake Total 640 / 640
Output Total 1270 / 1270 1575 / 1575
Balance -1270 / -1270 -935 / -935
Physical Exam
Physical Exam
Elderly gentleman, no acute distress.
JVP ~ 7-8 cm
Regular rate and rhythm normal S1 and S2, no S3 no S4 there is a grade 1/6 apical holosystolic murmur no rubs.
Lungs are clear to auscultation bilaterally although there is reduced breath sounds at the left lower base. No wheezes or rhonchi. No rales.
Lower extremities with +2 pretibial edema bilaterally
[2023-09-18] MEDS: ENTRESTO 24 MG/26 MG 1 TAB PO ×2 (09:56→21:37)
[2023-09-18] MEDS: COREG 6.25 MG PO ×2 (09:56→21:38)
[2023-09-18] MEDS: HEPARIN 5000 UNITS SC ×2 (09:56→21:41)
[2023-09-18] MEDS: LASIX 60 MG IV ×2 (09:57→16:13)
[2023-09-18] MEDS: LOW STRENGTH ASPIRIN 81 MG PO (09:58)
[2023-09-18] MEDS: PRAVACHOL 80 MG PO (09:58)
[2023-09-18] MEDS: PROSCAR 5 MG PO (09:58)
[2023-09-18] MEDS: METAMUCIL, KONSYL 1 PACKET PO (09:58)
[2023-09-18] MEDS: RESTASIS 0.05% OPHTHALMIC EMULSION 1 DROPS BOTH EYES ×2 (09:59→21:38)
[2023-09-18] MEDS: REVATIO 20 MG PO ×3 (09:59→21:37)
[2023-09-18] MEDS: ZYLOPRIM 100 MG PO (09:59)
[2023-09-18 11:03] VITALS: BP 116/66
--- NOTE | 2023-09-18 12:11 | W.PN.HOSP.TC ---
Today's Communication/Plan
-
.
Assessment / Plan
Assessment / Plan
Physical Exam
General: Chronically ill looking, No Apparent Distress
HEENT: Normocephalic, Moist mucous membranes, Atraumatic and Oxygen. Hard hearing.
Respiratory: less rales. Limited, no wheezes.
Cardiac: S1/S2
GI: Soft, Non Tender, Non Distended and Normal Bowel Sounds; No Organomegaly
Rectal: No rectal bleeding.
Musculoskeletal: No Clubbing, No Cyanosis, Edema, Left Lower Extremity, Edema, Right Lower Extremity and No Edema
Skin: No Rash
Neuro: Awake, AO to self and surroundings. Weak in general but followed commands.
Psych: Calm
#Acute on chronic diastolic heart failure exacerbation
#Coronary artery disease status post stents
He is not worsening. No sob
Lasix 80 IV twice daily, changed back to 60 mg BID since SBP was trending down and we resumed BP meds.
Monitor creatinine closely
proBNP elevated
Chest x-ray Cardiomegaly and mild to moderate CHF with small bilateral effusions.
Resumed Entresto 09/16
Daily weights, lost weight 2 Ib since yesterday
Appreciate cardiology input.
# Elevated troponin, nonischemic myocardial injury secondary to acute heart failure exacerbation
No chest pain or distress
Continue with aspirin
EKG with ventricular paced rhythm
No chest pain
#Permanent atrial fibrillation
Permanent pacemaker.
Device interrogated in office 08/02/23 with stable leads and thresholds of the [employer] device.
Continue with carvedilol and aspirin
Not on anticoagulants due to falls and epistaxis
#CKD3b
Monitor creatinine closely with diuresis. Stable creatinine
Creatinine at 1.8
#COPD not in acute exacerbation
Continue with inhalers
Pulmonary hypertension
Continue home regimen sildenafil 20 mg 3 times daily
Hyperlipidemia
Continue statin
# Chronic hypoxic respiratory failure on home O2
sildenafil 20mg TID for history of pulmonary hypertension.
# hyponatremia
# thrombocytopenia
#BPH
continue with dutasteride 0.5 mg daily
#Gout
Continue allopurinol 100 mg daily
#Chronic ambulatory dysfunction
- PT/OT/case management
#DVT ppx: SC heparin
#Code: DNR/DNI which is reasonable given advanced age and multiple hospital admissions
Total time spent to see the patient, examine the patient, review data and lab results, discuss treatment plan with patient, nursing staff around 57 minutes
Anticipated Discharge: 24 - 48 hours
Subjective/Interval History
-
Date of Service: September 18, 2023
No chest pain
No sob
He is off O2 now
Objective Data
-
Labs:
Laboratory Results
09/18/23
06:09
Sodium 136
Potassium 4.1
Chloride 103
Carbon Dioxide 27
BUN 58 H
Creatinine 1.8 H
Glucose 99
Calcium 9.2
Vital Signs:
Vital Signs
Temp Pulse Resp BP Pulse Ox
98.6 F 62 16 116/66 97
09/18/23 11:03 09/18/23 11:03 09/18/23 11:03 09/18/23 11:03 09/18/23 11:03
I&O
09/17/23 09/18/23 09/19/23
06:59 06:59 06:59
Intake Total 640 / 640
Output Total 1270 / 1270 1575 / 1575
Balance -1270 / -1270 -935 / -935
[2023-09-18 15:05] VITALS: BP 140/83
[2023-09-18 19:32] VITALS: BP 118/66
[2023-09-18] MEDS: AMBIEN 2.5 MG PO (21:40)
[2023-09-19] VITALS (8 sets, daily range): BP systolic 94–150; BP diastolic 48–88; PULSE 63; O2SAT 98; BMI 26.5
[2023-09-19 05:13] LABS: Hematocrit 33.4 % (39.0-52.0); Hemoglobin 11.3 g/dL (13.0-18.0); Mean Corp Hgb Conc. 33.8 g/dL (33.0-37.0); Mean Corpuscular Hgb 31.5 pg (27.0-31.0); Mean Platelet Volume 11.2 fL (7.4-10.4); Platelet Count 140 10^3/uL (130-400); Red Blood Cell Count 3.59 10^6/uL (4.70-6.10); Red Cell Dist. Width 16.7 % (11.5-14.5); White Blood Cell Count 4.6 10^3/uL (4.8-10.8)
[2023-09-19 05:42] LABS: Blood Urea Nitrogen 60 mg/dl (9-20); Calcium 9.2 mg/dl (8.4-10.2); Carbon Dioxide 27 mmol/L (22-30); Chloride 103 mmol/L (98-107); Estimated Creatinine Clearance 29 ml/min; Glucose 97 mg/dl (70-99); Magnesium 2.5 mg/dl (1.6-2.3); Sodium 138 mmol/L (135-145); eGFR 36.21
[2023-09-19] MEDS: LASIX 60 MG IV ×2 (07:51→15:08)
[2023-09-19] MEDS: HEPARIN 5000 UNITS SC ×2 (07:52→21:17)
[2023-09-19] MEDS: LOW STRENGTH ASPIRIN 81 MG PO (07:55)
[2023-09-19] MEDS: ZYLOPRIM 100 MG PO (07:55)
[2023-09-19] MEDS: PRAVACHOL 80 MG PO (07:55)
[2023-09-19] MEDS: ENTRESTO 24 MG/26 MG 1 TAB PO ×2 (07:55→21:16)
[2023-09-19] MEDS: RESTASIS 0.05% OPHTHALMIC EMULSION 1 DROPS BOTH EYES ×2 (07:56→21:17)
[2023-09-19] MEDS: REVATIO 20 MG PO ×3 (07:56→21:17)
[2023-09-19] MEDS: PROSCAR 5 MG PO (07:56)
[2023-09-19] MEDS: METAMUCIL, KONSYL 1 PACKET PO (07:56)
[2023-09-19] MEDS: COREG 6.25 MG PO ×2 (07:56→21:17)
[2023-09-19] MEDS: TYLENOL 650 MG PO ×2 (08:05→22:39)
--- NOTE | 2023-09-19 10:47 | WOUNDNOTE ---
R LATERAL LOWER LEG
--- NOTE | 2023-09-19 10:47 | WOUNDNOTE ---
R LATERAL LOWER LEG
--- NOTE | 2023-09-19 10:48 | WOUNDNOTE ---
R POSTERIOR LOWER LEG
--- NOTE | 2023-09-19 10:49 | WOUNDNOTE ---
R DORSAL 2ND TOE
--- NOTE | 2023-09-19 10:49 | WOUNDNOTE ---
L DORSAL 2ND TOE
--- NOTE | 2023-09-19 10:49 | WOUNDNOTE ---
L POSTERIOR LOWER LEG
--- NOTE | 2023-09-19 10:50 | WOUNDNOTE ---
[facility] RN note: Patient admitted with Pulmonary edema.
See H&P for complete history. Lives at [facility] assisted living.
PMH: Gout, A fib, CHF,CAD,HTN,OK PM, Parathyroidectomy, C3 and L radius fractures.
Wound Location and type/assessment: Patient admitted with: Venous leg ulcers to legs, patient states he had them for about a month and started as a blister. Has abrasions on dorsal aspect of B/L 2nd toes, intact scabs. Patient reports Dr. Renee
Target Setter sees patient at [facility] to manage feet and nail care. Skin on legs dry, few dry scabs suspect from previous venous ulcers. + pulses audible with Doppler. Patient states he can't get compression stockings on himself. Heels are blanchable red.
Sacrum is non blanchable red, patient transferred to chair along with PT.
Appetite: good
Pressure redistribution devices in place: cushion on wheelchair where currently sitting, legs elevated. On air mattress.
Plan:To leg wounds apply Mesalt, dry gauze and silicone foam. Leonardo wraps knee high. Applied foams to heels to protect.
Will confirm orders with hospitalist and updated nurse Radha.
Updated care plan and will follow as needed.
Note to case management of equipment requested for discharge: VN for wound care.
Recommend follow up at wound care center upon discharge.
--- NOTE | 2023-09-19 10:50 | W.PN.CARDCBS ---
Addendum entered and electronically signed by Patricia Webster PA-C 09/19/23 13:53:
Pacemaker interrogated and functioning appropriately. No ventricular arrhythmias and persistent AFib
Addendum entered and electronically signed by Brian Anderson DO 09/19/23 13:24:
I saw and examined the patient.
The Cloth Bin Packer's note was reviewed and I agree with the note.
Comment:
Plan:
Transition to oral lasix next 24 hrs
PPM interrogation today
Check chest xray
Cr at baseline
Perm AFib, not anticoagulation candidate due to fall hx, age and severe recurrent epistaxis. Cont ASA
Defer to primary service about chronic scrotal edema.
Original Note:
Today's Communication / Plan
-
Transition to oral Lasix 40 mg BID starting 09/19
PPM interrogation today
Check CXR
Impression / Plan
-
Family Physician:� Aleja Antoine DO
Field Pipe Lines Supervisor: Dr. Story
Impression:
Presents 09/16/2023 with cough, weakness, weight gain, shortness of breath and lower extremity edema
Acute on chronic HFpEF, proBNP 29439
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
abnormal troponin, suspect nonischemic myocardial injury secondary to acute heart failure exacerbation
CAD
s/p prior OK in 2008 and 2016 - details unclear
Permanent atrial fibrillation
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
s/p generator change
Pulmonary hypertension
HTN
HLD
COPD
h/o recurrent epistaxis
recurrent falls with recent cervical fracture
Moderate mitral regurgitation
Echo at [facility] 10/13/2022: EF 55-60%, mild
Echo 12/02/2022:�EF 65%, mod MR, mitral sclerosis without stenosis and mean gradient 2 mmHg, aortic sclerosis without stenosis and mild aortic regurgitation
Plan:
-Presented 09/16/2023 with acute decompensated congestive heart failure (HFpEF) and volume overload, ProBNP 23138 which is elevated however better than previous admissions where proBNP was greater than 35,000
Continue diuresis, currently on Lasix 60 mg IV twice daily. Weight 179#, down 6pounds over past 24 hours (down 11 lbs from adm) and fluid balance negative.
Creat down to baseline (1.8)
Would transition to oral diuretic Lasix 40 mg mg BID 09/20/23. {Was on 40 mg in am and 20 mg in pm as outpatient}
Continue to follow daily weights, I&Os and renal function (known chronic kidney disease with baseline creatinine of approximately 1.8).
Entresto held initially but resumed 09/17/2023 in evening (Son felt he has had less frequent HF exacerbations while on Entresto.)
Follow renal function
Continue medical therapy with Coreg 6.25mg BID
CHF education
-Abnormal troponin elevation, initial 0.118, peaked 0.12. Suspect non-ischemic myocardial injury due to acute heart failure. H/o CAD - no chest pain and ECG paced.
Now DNR continue conservative medical management w/ Coreg, pravastatin and aspirin.
-On sildenafil 20mg TID for history of pulmonary hypertension.
-On chronic home 2 L as outpatient. Now on room air
-Permanent atrial fibrillation with ventricular pacing.
Not on OAC due to recurrent severe epistaxis and history of falls. Continue ASA 81 mg
-Permanent pacemaker.
Device interrogated in office 08/02/23 with stable leads and thresholds of the Medtronic device.
Per EPS repeat PPM interrogation
Complaining of persistent scrotal edema which he tells me he has had for months and his urologist, Dr. Mathew in [place] recommended draining them. He has not gotten set up with a new urologist since relocating. Will defer to hospitalist.
Patient is now DNR/DNI which is reasonable given advanced age and multiple hospital admissions
HPI 09/16/2023:
87-year-old male with a history for permanent A-fib, PPM, coronary artery disease, chronic HFpEF, COPD/pulmonary hypertension on chronic oxygen therapy, hypertension, hyperlipidemia, OK, depression, back pain polyp, nonobstructing, kidney stones,
inguinal hernia presents with short of breath, weight gain and cough for several days. He was seen by outpatient cardiology in July and was thought to have evidence of volume overload and Lasix was temporarily increased at that time. In mid August
his [facility] community contacted the office again for evidence of volume overload and Lasix was increased temporarily for a second time. However his symptoms have continued to progress prompting him to come to the emergency department. proBNP
17,100, chest x-ray cardiomegaly with mild to moderate heart failure with small bilateral pleural effusions. EKG showed ventricular paced rhythm. Creatinine stable at 11.9, creatinine 2.0. At time of this evaluation patient resting in bed wearing
oxygen. He continues to complain of cough and intermittent shortness of breath. He denies chest pain.
Progress Note - Field Pipe Lines Supervisor
Subjective
Date of Service: September 19, 2023
Patient reports overall he is feeling better, less SOB and denies orthopnea/PND. He is complaining of persistent scrotal edema which he tells me he has had for months and his urologist, Dr. Mathew in [place] recommended draining them. He has not gotten
set up with a new urologist since relocating to this area.
Objective
Labs:
09/19/23 04:45
09/19/23 04:45
Labs
Hgb 11.3 g/dL (13.0-18.0) L 09/19/23 04:45
Hct 33.4 % (39.0-52.0) L 09/19/23 04:45
Plt Count 140 10^3/uL (130-400) 09/19/23 04:45
Sodium 138 mmol/L (135-145) 09/19/23 04:45
Potassium 4.0 mmol/L (3.5-5.1) 09/19/23 04:45
BUN 60 mg/dl (9-20) H 09/19/23 04:45
Creatinine 1.8 mg/dL (0.7-1.3) H 09/19/23 04:45
Glucose 97 mg/dl (70-99) 09/19/23 04:45
Troponins
09/16/23 09/16/23 09/16/23
11:39 12:09 18:34
Troponin I Cancelled 0.118 H* 0.120 H*
09/17/23
00:14
Troponin I 0.101 H*
Vital Signs and I&O:
Vital Signs
Temp Pulse Resp BP Pulse Ox
97.5 F 70 18 94/48 98
09/19/23 07:00 09/19/23 07:56 09/19/23 07:00 09/19/23 07:56 09/19/23 07:00
Vital Signs
Temp Pulse Resp BP Pulse Ox
97.5 F 70 18 94/48 98
09/19/23 07:00 09/19/23 07:56 09/19/23 07:00 09/19/23 07:56 09/19/23 07:00
Intake & Output
09/17/23 09/18/23 09/19/23 09/20/23
06:59 06:59 06:59 06:59
Intake Total 640 / 640 940 / 940
Output Total 1270 / 1270 1575 / 1575 1170 / 1170
Balance -1270 / -1270 -935 / -935 -230 / -230
Physical Exam
Physical Exam
GEN: No distress, awake, Ox3; sitting up in chair
HEENT: supple, anicteric, mmm; very hard of hearing
LUNGS:reduced/absent at bases otherwise CTA, no wheezes/rales
CV: Reg, S1/S2, 2/6 murmur, no rub or gallops
ABD: soft, BS+, NT/ND
EXT:Resolved LE Edema with liberty wraps in place
NEURO: Gross non-focal
SKIN: No rash, warm, dry, pink
--- NOTE | 2023-09-19 11:44 | W.PN.HOSP.TC ---
Addendum entered and electronically signed by Nick Nassar MD 09/19/23 12:07:
Curbsided urology Dr. Martin- typically just scrotal elevation while in bed or sitting. Common in male patient with CHF.
Original Note:
Today's Communication/Plan
-
diuretics per cards
cxr pending
oob
Assessment / Plan
Assessment / Plan
Physical Exam
General: Chronically ill looking, No Apparent Distress
HEENT: Normocephalic, Moist mucous membranes, Atraumatic and Oxygen. Hard hearing.
Respiratory: less rales. dec bs at bases no wheezes.
Cardiac: S1/S2
GI: Soft, Non Tender, Non Distended and Normal Bowel Sounds; No Organomegaly
Rectal: No rectal bleeding.
Musculoskeletal: No Clubbing, No Cyanosis, Edema, Left Lower Extremity, Edema, Right Lower Extremity and No Edema
Skin: No Rash
Neuro: Awake, AO to self and surroundings. Weak in general but followed commands.
Psych: Calm
#Acute on chronic diastolic heart failure exacerbation
#Coronary artery disease status post stents
Lasix 80 IV twice daily, changed back to 60 mg BID since SBP was trending down and we resumed BP meds.
Monitor creatinine closely
proBNP elevated
Chest x-ray Cardiomegaly and mild to moderate CHF with small bilateral effusions.
Resumed Entresto 09/16
Daily weights, if admission weight adequate losing weight.
Appreciate cardiology input.
# Elevated troponin, nonischemic myocardial injury secondary to acute heart failure exacerbation
No chest pain or distress
Continue with aspirin
EKG with ventricular paced rhythm
No chest pain
#Permanent atrial fibrillation
Permanent pacemaker.
Device interrogated in office 08/02/23 with stable leads and thresholds of the Medtronic device.
Continue with carvedilol and aspirin
Not on anticoagulants due to falls and epistaxis
Plan for pacemaker interrogation today
#CKD3b
Monitor creatinine closely with diuresis. Stable creatinine
Creatinine at 1.8
#COPD not in acute exacerbation
Continue with inhalers
Pulmonary hypertension
Continue home regimen sildenafil 20 mg 3 times daily
Hyperlipidemia
Continue statin
# Chronic hypoxic respiratory failure on home O2
sildenafil 20mg TID for history of pulmonary hypertension.
# hyponatremia
# thrombocytopenia
#BPH
continue with dutasteride 0.5 mg daily
#Gout
Continue allopurinol 100 mg daily
#Chronic ambulatory dysfunction
- PT/OT/case management-SNF on dc.
#DVT ppx: SC heparin
#Code: DNR/DNI which is reasonable given advanced age and multiple hospital admissions
update paulette mtz over the phone
Anticipated Discharge: Within 24 hours
Subjective/Interval History
-
Date of Service: September 19, 2023
Denies chest pain or shortness of breath
States of scrotal swelling
Objective Data
-
Labs:
Laboratory Results
09/19/23
04:45
WBC 4.6 L
Hgb 11.3 L
Hct 33.4 L
Plt Count 140
Sodium 138
Potassium 4.0
Chloride 103
Carbon Dioxide 27
BUN 60 H
Creatinine 1.8 H
Glucose 97
Calcium 9.2
Vital Signs:
Vital Signs
Temp Pulse Resp BP Pulse Ox
97.5 F 70 18 94/48 94
09/19/23 07:00 09/19/23 07:56 09/19/23 07:00 09/19/23 07:56 09/19/23 07:55
I&O
09/18/23 09/19/23 09/20/23
06:59 06:59 06:59
Intake Total 640 / 640 940 / 940
Output Total 1575 / 1575 1170 / 1170
Balance -935 / -935 -230 / -230
Physical Exam
-
General: No Apparent Distress
HEENT: Moist Mucous Membranes
Respiratory: Crackles (Few basal crackles in left base today); Negative Wheezes
Cardiac: S1/S2 and Irregular Rhythm; Negative Tachycardic
GI: Soft and Nontender
Genito-urinary: Other (Scrotal swelling)
Neuro: Awake and AO x 3
Psych: Calm; Negative Confused
Data Reviewed
-
Total Time Spent with Patient (in minutes): 55
--- NOTE | 2023-09-19 13:37 | CM ---
Call to [facility] to provide update on current status and discuss pt's return. I spoke with So, RN [phone] and advised that Earl was for discharge home with PT/OT; [facility] So asked for med list to be sent prior
to Earl's return so they can have them ordered from the pharmacy. [facility] via [facility]
--- NOTE | 2023-09-19 13:43 | CM ---
Patient son and CM discussed with patient, plan of care is to return to [facility]. Family and patient refused to consider SNF placement, family requesting referral to [facility] for PT/OT. Per physician possible discharge to [facility] tomorrow. IMM
completed and signed form placed on chart. CM will continue to follow for discharge planning needs.
Plan; home with PT/OT to personal care
--- NOTE | 2023-09-19 13:48 | W.CARD.DEVCH ---
Cardiac Device Check
-
Device: Pacemaker
Candy Cutter Hand: Medtronic
The patient's device was interrogated with assistance of the device sales representative livestock followed by a complete physician review. The device had normal function. No abnormalities seen.
--- NOTE | 2023-09-19 18:23 | PTCARENOTE ---
Patient had multiple BMs throughout the day. Patient using BSC. Patient with good diuretic response from Lasix.
[2023-09-19] MEDS: AMBIEN 2.5 MG PO (22:39)
[2023-09-20 03:10] VITALS: BP 111/61
[2023-09-20 06:00] VITALS: BMI 26.2
[2023-09-20 07:55] VITALS: BP 133/72
[2023-09-20] MEDS: RESTASIS 0.05% OPHTHALMIC EMULSION 1 DROPS BOTH EYES (08:22)
[2023-09-20] MEDS: ENTRESTO 24 MG/26 MG 1 TAB PO (08:22)
[2023-09-20] MEDS: REVATIO 20 MG PO (08:24)
[2023-09-20] MEDS: PRAVACHOL 80 MG PO (08:24)
[2023-09-20] MEDS: LOW STRENGTH ASPIRIN 81 MG PO (08:24)
[2023-09-20] MEDS: PROSCAR 5 MG PO (08:25)
[2023-09-20] MEDS: COREG 6.25 MG PO (08:25)
[2023-09-20] MEDS: LASIX 40 MG PO (08:25)
[2023-09-20] MEDS: HEPARIN 5000 UNITS SC (08:25)
[2023-09-20] MEDS: ZYLOPRIM 100 MG PO (08:25)
--- NOTE | 2023-09-20 10:42 | CM ---
Patient sleeping in bed, plan for return to personal care at [facility] today. pending physician assessment. Will update son and possible transportation. referral sent to [facility] for pt/ot and will need to send transition of care as soon as possible for
pharmacy at facility to update any new or changed medications. CM will continue to follow for discharge planning needs.
Plan: return to personal care with [facility]/ [facility]
--- NOTE | 2023-09-20 11:16 | W.PN.HOSP.TC ---
Today's Communication/Plan
-
dc back to [facility]
po lasix
scrotal elevation
Assessment / Plan
Assessment / Plan
Physical Exam
General: Chronically ill looking, No Apparent Distress, sitting in chair.
HEENT: Normocephalic, Moist mucous membranes, Atraumatic. Hard of hearing.
Respiratory:cta b/l
Cardiac: S1/S2
GI: Soft, Non Tender, Non Distended and Normal Bowel Sounds; No Organomegaly
Musculoskeletal: No Clubbing, No Cyanosis, Edema, Left Lower Extremity, Edema, Right Lower Extremity improved
scrotal edema
Skin: No Rash
Neuro: Awake, AO to self and surroundings. Weak in general but followed commands.
Psych: Calm
#Acute on chronic diastolic heart failure exacerbation
#Coronary artery disease status post stents
Lasix 80 IV twice daily, changed back to 60 mg BID since SBP was trending down and we resumed BP meds.
Monitor creatinine closely
proBNP elevated
Chest x-ray Cardiomegaly and mild to moderate CHF with small bilateral effusions.
Resumed Entresto 09/16
Daily weights, if admission weight adequate losing weight.
now on lasix 40mg po BID
Appreciate cardiology input.
#Chronic Scrotal edema
Curbsided urology Dr. Martin on 09/18- due to congestive heart failure and in male patient. Recommended scrotal elevation while in bed or sitting
f/u with primary urologist in [place].
# Elevated troponin, nonischemic myocardial injury secondary to acute heart failure exacerbation
No chest pain or distress
Continue with aspirin
EKG with ventricular paced rhythm
No chest pain
#Permanent atrial fibrillation
Permanent pacemaker.
Status post device interrogation found no ventricular arrhythmia and showed persistent
Device interrogated in office 08/02/23 with stable leads and thresholds of the [employer] device.
Continue with carvedilol and aspirin
Not on anticoagulants due to falls and epistaxis
#CKD3b
Monitor creatinine closely with diuresis. Stable creatinine
Creatinine at 1.8
#COPD not in acute exacerbation
Continue with inhalers
Pulmonary hypertension
Continue home regimen sildenafil 20 mg 3 times daily
Hyperlipidemia
Continue statin
#history of pulmonary hypertension.
sildenafil 20mg TID
# hyponatremia-resolved. Na at 138
# thrombocytopenia -resolved. Plt at 140k.
#BPH
continue with dutasteride 0.5 mg daily
#Gout
Continue allopurinol 100 mg daily
#Chronic ambulatory dysfunction
- PT/OT/case management-SNF on dc. Patient and family refused. Back to [facility].
#DVT ppx: SC heparin
#Code: DNR/DNI which is reasonable given advanced age and multiple hospital admissions
More than 30 minutes spent in discharge including
Final examination of the patient
Summarizing hospital stay
Instructions for continuing care to all relevant caregivers
Preparation of discharge records, prescriptions, and referral forms
Total time spent (in minutes): 52
Anticipated Discharge: Today
Subjective/Interval History
-
Date of Service: September 20, 2023
Sitting in chair reading book
no chest pain or sob
no complaints
Objective Data
-
Labs:
Laboratory Results
09/20/23
07:47
Sodium Cancelled
Potassium Cancelled
Chloride Cancelled
Carbon Dioxide Cancelled
BUN Cancelled
Creatinine Cancelled
Glucose Cancelled
Calcium Cancelled
Vital Signs:
Vital Signs
Temp Pulse Resp BP Pulse Ox
97.4 F 74 20 134/62 99
09/20/23 07:55 09/20/23 08:25 09/20/23 07:55 09/20/23 08:25 09/20/23 07:55
I&O
05/11/0609/20/23 09/21/23
06:59 06:59 06:59
Intake Total 940 / 940 780 / 780
Output Total 1170 / 1170 800 / 800
Balance -230 / -230 -20 / -20
--- NOTE | 2023-09-20 11:32 | W.DCSUMMARY ---
Discharge Summary
Discharge Data
Date of Admission: 09/16/23
Date of Discharge: 09/20/23
-
Pending Results: No
Hospital Course
87 yo male past medical history of chronic HFpEF, chronic total edema, atrial fibrillation, permanent pacemaker implantation, CKD, COPD, pulmonary hypertension who is presented with severe lower extremity edema and shortness of breath. Patient was
found to be in acute on chronic heart failure exacerbation. Patient was started on IV Lasix. Cardiology evaluated the patient. Patient with improvement in lower extremity edema. Patient with chronic scrotal edema which was secondary to
congestive heart failure and recommended oral elevation while in bed or sitting. Patient pacemaker was interrogated was found without any ventricular arrhythmias. Patient creatinine was trended daily and remained stable. Patient with significant
improvement in edema and was transition from IV Lasix to p.o. 40 mg twice daily. Patient spoke with PT and OT who recommended SNF however patient and son refused and patient to be going back to assisted living facility.
Discharge Plan
-
Patient Disposition: Assisted Living
Discharge Diagnosis/Procedures: Acute on chronic diastolic heart failure exacerbation
Nonischemic myocardial injury
Condition: Fair
Diet: 2 Gram Sodium and Restrict fluids to 48 oz
Activity: With assistance and As tolerated
Driving Restrictions: No driving
Blood Work: BMP in 1 week via primary doctor.
Other Services: VN
Specialty Instructions: Weigh Daily- Call MD for wt gain/loss 3 lbs overnight/5 lbs in 1 week
Activity Restrictions/Additional Instructions:
Wound Care Instructions
Legs: clean with soap and water, [place] to open wounds, dry gauze dressing daily.
Moisturize legs daily
Leonardo wrap knee high daily can remove at bedtime
leg elevation when sitting
Follow up at wound care center if wounds not healing, call for an appointment.
Referrals:
Aleja Antoine DO [Family Provider] - in less than 1 week
Solomon Story MD [Active] - 09/27/23 2:20 pm (You have cardiology follow with with Dr. Story on September 26 at 2:20 pm in [address] at the [facility] [address] in [place]. If you are unable to make this appointment
please call [phone] to reschedule)
Prescriptions:
New
furosemide 40 mg Tablet
40 mg PO BID AT 0800,1600 30 Days Qty: 60 0RF
Continued
allopurinol 100 mg Tablet
100 mg PO DAILY
pravastatin 80 mg Tablet
80 mg PO DAILY
hydrocortisone [Preparation H Hydrocortisone] 1 % Cream
1 applic ND BIDPRN PRN (Reason: HEMORRHOIDS)
docusate sodium [Colace] 100 mg Capsule
100 mg PO DAILYPRN PRN (Reason: CONSTIPATION)
zolpidem [Ambien] 5 mg Tablet
2.5 mg PO HS
fluticasone propionate 50 mcg/actuation [place],Suspension
1 spray INTRANASAL DAILYPRN PRN (Reason: allergic rhinitis)
dutasteride 0.5 mg Capsule
0.5 mg PO DAILY
cyclosporine [Restasis] 0.05 % [place]
1 drp BOTH EYES Q12H
sildenafil (pulm.hypertension) 20 mg Tablet
20 mg PO TID
carvedilol 6.25 mg Tablet
6.25 mg PO BID Qty: 60 0RF
aspirin 81 mg Tablet,Chewable
81 mg PO DAILY Qty: 30 0RF
acetaminophen 325 mg Tablet
650 mg PO Q6HPRN MDD 3000 mg PRN (Reason: mild pain/fever)
psyllium Packet
1 packet PO DAILY
amoxicillin 500 mg Capsule
2,000 mg PO DAILYPRN PRN (Reason: 1 hr prior to dental procedures)
polyethylene glycol 3350 17 gram Powder In Packet
17 g PO DAILY PRN (Reason: constipation)
dextromethorphan-guaifenesin 10-100 mg/5 mL Liquid
10 ml PO Q4H PRN (Reason: cough)
loperamide [Anti-Diarrheal (loperamide)] 2 mg Tablet
2 mg PO Q8HPRN PRN (Reason: diarrhea)
tramadol 50 mg Tablet
50 mg PO Q6H PRN (Reason: mild pain)
bismuth subsalicylate [Pepto-Bismol] 262 mg/15 mL Suspension
524 mg PO TIDPRN PRN (Reason: upset stomach)
albuterol sulfate 90 mcg/actuation Hfa Aerosol Inhaler
2 puff INHALATION R Q4HPRN PRN (Reason: sob)
methyl salicylate-menthol Cream
1 applic TOPICAL BID PRN (Reason: upper back/post neck area)
Ricola Lozenge
1 елена MUCOUS MEMBRANE QIDPRN PRN (Reason: cough)
Entresto 24-26 mg tablet
1 tab PO BID
Patient Comments:
09/16/2023, hold if SBP<110.
Discontinued
furosemide 80 mg Tablet
80 mg PO DAILY
Discharge Orders:
Discharge Patient (As Directed); Ordered 09/20/23
Ordered By: Nick Nassar
Discharge Date and Time
Discharge Date/Time: 09/20/23 13:52
Print Language: TAJIK
--- NOTE | 2023-09-20 11:33 | CM ---
Patient for discharge back to [facility] today. Please fax to [phone]/call to [phone]. Please fax to [facility] at (phone [phone]) CM sent request for [facility] fax number to facility Fax number is .
[2023-09-20 11:36] VITALS: BP 125/64
--- NOTE | 2023-09-20 12:35 | PTCARENOTE ---
Report attempted to be called to [facility]. Spoke to nurse and left extension to call back. Ambulance transport arranged for 1300 for patient discharge. Peripheral IV line removed. Tele removed.
--- NOTE | 2023-09-20 12:55 | SUR.PHASEI ---
Report called to [facility] and discharge instructions faxes. 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
== END 2023-09-20 13:52 | disposition home or self-care (01) | DRG 291 ==
LOC: 4 EAST ACU 14:08
PROVIDERS: Internal Medicine; Physician Assistant; ADMITTING PHYSICIAN Hospitalist; CONSULT PHYSICIAN Internal Medicine Cardiovascular Disease; EMERGENCY PHYSICIAN Student in an Organized Health Care Education/Training Program; FAMILY PHYSICIAN Hospitalist
PROC: 4B02XSZ Measurement of Cardiac Pacemaker, External Approach (ICD-10-PCS; 2023-09-19)
DX: I13.0 Hypertensive heart and chronic kidney disease with heart failure and stage 1 through stage 4 chronic kidney disease, or unspecified chronic kidney disease (principal); I50.33 Acute on chronic diastolic (congestive) heart failure; I48.21 Permanent atrial fibrillation; J44.0 Chronic obstructive pulmonary disease with (acute) lower respiratory infection; N17.9 Acute kidney failure, unspecified; E87.1 Hypo-osmolality and hyponatremia; J96.11 Chronic respiratory failure with hypoxia; I5A Non-ischemic myocardial injury (non-traumatic); I25.10 Atherosclerotic heart disease of native coronary artery without angina pectoris; I27.20 Pulmonary hypertension, unspecified; M10.9 Gout, unspecified; N40.0 Benign prostatic hyperplasia without lower urinary tract symptoms; E78.00 Pure hypercholesterolemia, unspecified; F32.A Depression, unspecified; R29.6 Repeated falls; N18.32 Chronic kidney disease, stage 3b; D69.6 Thrombocytopenia, unspecified; I34.0 Nonrheumatic mitral (valve) insufficiency; N50.89 Other specified disorders of the male genital organs; Z66 Do not resuscitate; I25.2 Old myocardial infarction; Z95.0 Presence of cardiac pacemaker; Z87.891 Personal history of nicotine dependence; Z11.52 Encounter for screening for COVID-19; Z91.040 Latex allergy status; Z88.2 Allergy status to sulfonamides; Z79.82 Long term (current) use of aspirin; Z79.51 Long term (current) use of inhaled steroids; Z99.81 Dependence on supplemental oxygen; Z87.442 Personal history of urinary calculi; Z95.5 Presence of coronary angioplasty implant and graft; Z91.81 History of falling
CPT/HCPCS: 71046; 80048; 80053; 83735; 83880; 84484; 85025; 85027; 87070; 87502; 87811; 93005; 93306; 94640; 96374; 97162; 97166; 99285

== ENCOUNTER 2023-10-03 14:34 | Inpatient (IN) | payer MEDICARE, OTHER, SELFPAY ==
[2023-10-03 12:14] VITALS: BP 146/82
[2023-10-03 12:44] LABS: % Basophils 0.4 % (0-2); % Eosinophils 0.5 % (0-6); % Immature Granulocytes 0.2 % (0-0.5); % Lymphocytes 5.5 % (20.5-51.1); % Monocytes 4.9 % (1.7-9.3); % Neutrophils 88.5 % (42.2-75.2); Absolute Lymphocytes 0.3 10^3/uL (1.2-3.4); Absolute Monocytes 0.3 10^3/uL (0.1-0.6); Hematocrit 34.6 % (39.0-52.0); Hemoglobin 11.3 g/dL (13.0-18.0); Mean Corp Hgb Conc. 32.7 g/dL (33.0-37.0); Mean Corpuscular Hgb 31.2 pg (27.0-31.0); Mean Corpuscular Volume 95.6 fL (80.0-94.0); Mean Platelet Volume 12.2 fL (7.4-10.4); Nucleated Red Blood Cells % 0 % (-); Platelet Count 143 10^3/uL (130-400); Red Blood Cell Count 3.62 10^6/uL (4.70-6.10); Red Cell Dist. Width 17.5 % (11.5-14.5); White Blood Cell Count 5.7 10^3/uL (4.8-10.8)
--- NOTE | 2023-10-03 12:48 | ED.GENMED ---
History of Present Illness
General
Chief Complaint: Fatigue
Source: patient, records and ambulance crew
Time Seen by Provider: 10/03/23 12:32
Travel History
Have you had any contact with someone who has COVID-19?: No
Do you have any symptoms of coronavirus? Fever > 100 degrees, chills, cough, shortness of breath, sore throat, loss of taste or smell, muscle aches, or headache?: No
History of Present Illness
History of Present Illness:
87-year-old male with past medical history of heart failure with preserved ejection fraction, atrial fibrillation, CAD status postcardiac stents, hypertension, hyperlipidemia (recent admission here for CHF exacerbation with diuresis) presents back
to the emergency department for what he states is shortness of breath but EMS reports that family noticed increased fatigue, lethargy and confusion. Patient reports good compliance with daily medications and still reports taking his diuretics. He
states that his edema has seem to have gotten better. He denies any fevers, chills, rigors, nausea, vomiting, current chest pain, palpitations, diaphoresis. It is noted on patient's paperwork from his care facility that he receives assistance to
move around but is mostly bedbound. No family currently present in the ER for history.
Past History
Past History
ED Past Medical History: Arrthythmia (Atrial fib), CAD, CHF, COPD, HTN, Hypercholesterolemia, [place], Psychiatric (Depressio) and Other (Back pain, PNA, Bowel Obstruction, Renal calculus, Inguinal hernia, C2 fracture with right hand Numbness)
ED Past Surgical History: Cardiac (Pacemaker, Stents X 4) and Other (Parathyroidectomy)
Social History
Tobacco: Former smoker (Smoked a Pipe)
Alcohol: None
Drug: None
Personal:
Living: prison
Employment: Retired
Family History
Family History: Other (Noncontributory)
Review of Systems
Review of Systems
All Other Systems: ROS reviewed and negative except as documented in HPI and ROS
Phy Exam
Physical Exam
Physical Exam:
GENERAL: Alert , in no apparent distress
EYE: conjunctiva clear
NECK: Supple
ENT: o/p clr, mmm.
CARDIAC: Regular rate and rhythm, systolic murmur
LUNGS: Clear breath sounds bilaterally, no acute respiratory distress, no wheezes/rales/rhonchi, clearish to brown-tinged sputum
NEUROLOGICAL: Alert and oriented
SKIN: Warm and dry, skin intact.
MUSCULOSKELETAL: well perfused. No edema. 2 separate bandages to bilateral lower extremities without any surrounding cellulitic changes
PSYCH: Normal and appropriate interaction.
Scores
Heart Failure Risk
Heart Failure Risk Score: Not Applicable
Heart Score for Chest Pain Patients
STEMI patient?: Not applicable
Withdrawal Assessment of Alcohol
Withdrawal Assessment Completed?: Not applicable
Course
Orders/Labs/Results
Orders:
Orders
10/03/23 12:32
Basic Metabolic Panel Urgent
Complete Blood Count/With Diff Urgent
10/03/23 12:38
NT-proBNP Urgent
Troponin I Urgent
Comment: ADD ON
10/03/23 12:39
Add On- LAB Urgent
Tests Added?: troponin
Electrocardiogram (*1) Urgent
Reason for Study: Shortness of Breath
EKG- Treatment ONCE
CR Chest Portable - 1 View Urgent
Comment:
Reason For Exam: SOB
Reason Study Needs to be Portable: Unable to Transport
10/03/23 12:51
COVID-19 Antigen Urgent
Source: Nasal Swab
10/03/23 14:08
Admit/Transfer Patient As Directed
Co-Sign Provider:
Level of Care: Inpatient admission
Assign to:: Telemetry
Physician / Group: Broderick
Diagnosis: CHF
Reason for Telemetry: Acute Heart Failure
Date to Stop Telemetry: 10/06/23
Time to Stop Telemetry: 11:00
Reason for Hospitalization: Heart Failure
Expected length of stay greater than two midnights?: Yes
ELOS- Estimated Length of Stay in days: 3
I certify the patient meets the requirements for IP care: Yes
10/03/23 14:14
Code Status As Directed
Resuscitation Status: Do not resuscitate
Reached after discussion with pt or family/Healthcare POA: Yes
10/03/23 14:16
DNR Bracelet Application ONCE
10/03/23 14:18
Arterial Blood Gas Urgent
%Oxygen/Room Air: 99%
10/03/23 14:21
Urinalysis Reflex To Culture Urgent
10/03/23 14:32
LFT [Rtfaa-[id number]-Xyzuvmg] Urgent
Potassium Urgent
10/03/23 15:30
Troponin I Q6H
10/03/23 21:30
Troponin I Q6H
10/06/23 11:00
DC Protocol for Telemetry ONCE
Abnormal Lab Results
10/03/23 10/03/23
12:32 12:38
RBC 3.62 L 10^6/uL
(4.70-6.10)
Hgb 11.3 L g/dL
(13.0-18.0)
Hct 34.6 L %
(39.0-52.0)
MCV 95.6 H fL
(80.0-94.0)
MCH 31.2 H pg
(27.0-31.0)
MCHC 32.7 L g/dL
(33.0-37.0)
RDW 17.5 H %
(11.5-14.5)
MPV 12.2 H fL
(7.4-10.4)
Absolute Lymphs (auto) 0.3 L 10^3/uL
(1.2-3.4)
Neutrophils % 88.5 H %
(42.2-75.2)
Lymphocytes % 5.5 L %
(20.5-51.1)
BUN 69 H mg/dl
(9-20)
Creatinine 2.2 H mg/dL
(0.7-1.3)
Glucose 129 H mg/dl
(70-99)
Troponin I 0.296 H* ng/ml
10/03/23 12:32
Vital Signs
Initial and Last Documented VS:
Initial Vital Signs
Temp Pulse Resp BP Pulse Ox
97.9 F 65 16 146/82 100
10/03/23 12:14 10/03/23 12:14 10/03/23 12:14 10/03/23 12:14 10/03/23 12:14
Last Documented Vital Signs
Temp Pulse Resp BP Pulse Ox
97.9 F 61 19 147/93 96
10/03/23 12:14 10/03/23 14:30 10/03/23 14:30 10/03/23 14:00 10/03/23 14:30
MDM/Problems Addressed
Differential Diagnosis Includes:
Acute on chronic CHF exacerbation, pneumonia or other infectious process, viral syndrome, deconditioning, valvular dysfunction
MDM/Problems Addressed:
87-year-old male presenting the emergency department for evaluation of what he states is shortness of breath but EMS reporting family noticed increased confusion and lethargy. Patient has multiple chronic cardiopulmonary complications. Currently
satting 100% on 2 L via nasal cannula which is his reported baseline. He is otherwise hemodynamically stable. Labs, chest x-ray, COVID testing ordered. Will contact family to get further history. Disposition pending
Chronic conditions affecting care: Arrhythmia and Other (CHF)
*Pulse Oximetry
Patient hypoxic: no
*EKG
Interpreted by ED Provider?: Yes
Comparison EKG: no changes
Heart Rate: 64
Rate: normal
Rhythm: ventricular paced
*Winding Rack Operator Interpretation
Rate: normal
Rhythm: ventricular paced
*Critical Care Note
Total Time (30-74mins, 75-104mins- exclusive of procedures): Not Applicable
Data Reviewed
Review of Other/Old Records Reveals: Labs, Records and Discharge Summary
Patient Management
Discussion with other providers: Hospitalist
Escalation/DeEscalation of care consider admission/obs:
Called and spoke to patient's son who states that since last night patient has seemed to decline noting more shortness of breath, needing much more assistance at the prison and was continuously falling asleep while eating which is very
atypical. Son noted that patient required 2 person assist when he normally only needed minimal assistance previously. Explained findings in the ER. Patient appears to have had a 7-1/2 pound weight gain since his discharge earlier this month.
Will admit to hospitalist service for continued evaluation and treatment.
ED Attending Note
-
Portions of this chart may have been created with voice recognition software.� Occasional wrong word or��sound alike� substitutions may have occurred due to the inherent limitations of voice recognition software.
Discharge Plan
Departure
Patient Disposition: Admit
Date of Disposition: 10/03/23
Time of Disposition: 13:36
Presentation/result/management discussed w/ accepting MD/DO: Hospitalist
Discharge Problem:
Acute exacerbation of CHF (congestive heart failure), Pleural effusion, CKD (chronic kidney disease)
Interventions
Interventions:
*Risk Screen - Suicide Last Done: 10/03/23 12:14
*General Assessment Last Done: 10/03/23 12:14
*Neglect/Abuse Screening Last Done: 10/03/23 12:14
*ED COVID-19 Vaccine History Last Done: 10/03/23 12:14
[2023-10-03 13:04] LABS: Blood Urea Nitrogen 69 mg/dl (9-20); Calcium 9.8 mg/dl (8.4-10.2); Carbon Dioxide 23 mmol/L (22-30); Chloride 104 mmol/L (98-107); Glucose 129 mg/dl (70-99); Sodium 139 mmol/L (135-145); eGFR 28.46
[2023-10-03 13:08] LABS: NT-proBNP 14900 pg/ml
[2023-10-03 13:10] LABS: COVID-19 Antigen Negative (Negative)
[2023-10-03 13:34] LABS: Troponin I 0.296 ng/ml
[2023-10-03 14:00] VITALS: BP 147/93
--- NOTE | 2023-10-03 14:25 | HPS.HSE ---
Addendum entered and electronically signed by Heide Villafana MD 10/03/23 15:12:
Patient seen and examined independently--agree with PA note
GENERAL: well developed, well nourished, male confused, won't answer questions, fixated on needing to use the urinal
HEENT: NC/AT--no O2 NC
HEART: regular rate and rhythm, +S1, +S2
LUNGS : crackles bilaterally anteriorly (would not sit up for me)
ABDOM: soft, nontender, nondistended, + bowel sounds
EXT: no cyanosis, clubbing, or edema
NEUROLOGIC: seems unable to do ADLs by himself--needs someone to pull his pants down for him to pee
Confusion--unclear cause--infection, SOB, other---Check ABG and UA with reflex to culture
Acute on Chronic Heart Failure with Mid-Range EF--Echo September 2023: Global hypokinesis with EF 45-50%. Moderate Mitral and Tricuspid Regurgitation--unclear if needs diuresis?--right heart cath may help--cont lasix--hold entresto-consult cards--Suspect
component of dietary non-compliance--Monitor Is&Os and Daily Weights
Non-Ischemic Myocardial Injury--Continue to trend troponin
CHAD on CKD Stage III--Suspect related to volume overload--Hold Entresto--Monitor bladder scans for urinary retention--Recheck creatinine in AM
Coronary Artery Disease s/p stent--Continue aspirin
Permanent Atrial Fibrillation s/p Pacemaker--Continue Coreg--Patient is not on anticoagulation due to fall risk
COPD/Pulmonary Hypertension - No acute exacerbation--Continue sildenafil--Continue albuterol prb
Essential Hypertension--Continue carvedilol with hold parameters
Hyperlipidemia--Continue pravastatin
BPH--Continue dutasteride--Monitor bladder scans
DVT proph:SC Heparin
Code Status: DNR/DNI
Original Note:
Family Physician
-
Family Physician: Aleja Antoine, DO
Chief Complaint
-
Shortness of Breath
History of Present Illness
This is a 87 year old male with a past medical history of HFmrEF, COPD, CKD, hypertension, a-fib and CAD status postcardiac stents who presents from [facility] for increasing in fatigue and shortness of breathe. He presents via EMS who
informed ED per family that he also appeared acutely confused. Patient was recently admitted from 09/15 to 09/19 for heart failure. Presently, [place] [address] and elevated troponin of 0.296. It appears patient's weight is also
up 8kg from his prior hospitalization. He denies chest pain or lower extremity edema. No family currently present in the ER to provide additional history. Face sheet from facility indicates patient is ordered a regular diet, instead of low sodium
diet with fluid restriction as ordered on his recent discharge.
Medical History
Past Medical History
Past Medical History: Reports Other
Additional Past Medical History:
Atrial fib permanent,
Pacemaker implantation
Chronic HFpEF
COPD
Primary hypertension
CAD
CKD stage III
Pulmonary hypertension
Chronic hypoxic respiratory insufficiency
Hyperlipidemia
BPH
Gout
Chronic ambulatory dysfunction
Past Surgical History: Reports Other
Additional Past Surgical History:
Pacemaker plantation
Parathyroidectomy
CAD status post stents
Social History
Tobacco: Former Smoker
Personal:
Living: Assisted Living
Family History
Family History: Not pertinent
Allergies / Home Medications
Allergies reflects when Allergies were last updated in [employer].
Home Medications with original date entered in [employer]
Allergy/Medication List:
Allergies
Allergy/AdvReac Type Severity Reaction Status Date / Time
latex Allergy Rash Verified 03/15/23 16:20
Sulfa (Sulfonamide Allergy Rash Verified 03/15/23 16:20
Antibiotics)
Home Medications
allopurinol 100 mg tablet 100 mg PO DAILY Gout 12/01/22
cyclosporine 0.05 % eye drops in a dropperette (Restasis) 1 drp BOTH EYES Q12H DRY EYES 12/01/22
docusate sodium 100 mg capsule (Colace) 100 mg PO DAILYPRN PRN CONSTIPATION 12/01/22
dutasteride 0.5 mg capsule 0.5 mg PO DAILY Urinary Issue 12/01/22
fluticasone propionate 50 mcg/actuation nasal spray,suspension 1 spray intranasal DAILYPRN PRN allergic rhinitis 12/01/22
hydrocortisone 1 % topical cream (Preparation H Hydrocortisone) 1 applic GA BIDPRN PRN HEMORRHOIDS 12/01/22
pravastatin 80 mg tablet 80 mg PO DAILY High Cholesterol 12/01/22
sildenafil (pulm.hypertension) 20 mg tablet 20 mg PO TID PULM HYPERTENSION 12/01/22
zolpidem 5 mg tablet (Ambien) 5 mg PO HS Sleep 12/01/22
aspirin 81 mg chewable tablet 81 mg PO DAILY Heart disease/condition #30 tabs 12/06/22
carvedilol 6.25 mg tablet 6.25 mg PO BID Heart Failure #60 tabs 12/06/22
acetaminophen 325 mg tablet 650 mg PO Q6HPRN PRN mild pain/fever 01/27/23
psyllium 1 packet PO DAILY Constipation 01/27/23
albuterol sulfate 90 mcg/actuation aerosol inhaler 2 puff inhalation R Q4HPRN PRN sob 09/16/23
bismuth subsalicylate 262 mg/15 mL oral suspension (Pepto-Bismol) 524 mg PO TIDPRN PRN upset stomach 09/16/23
dextromethorphan-guaifenesin 10 mg-100 mg/5 mL oral liquid 10 ml PO Q4HPRN PRN cough 09/16/23
loperamide 2 mg tablet (Anti-Diarrheal (loperamide)) 2 mg PO Q8HPRN PRN diarrhea 09/16/23
menthol-herbal drugs lozenges (Ricola lozenges) 1 елена mucous membrane QIDPRN PRN cough 09/16/23
polyethylene glycol 3350 17 gram oral powder packet 17 g PO DAILYPRN PRN constipation 09/16/23
tramadol 50 mg tablet 50 mg PO Q6HPRN PRN mild pain 09/16/23
sacubitril 24 mg-valsartan 26 mg tablet (Entresto) 1 tab PO BID Heart Disease/Condition 09/18/23
furosemide 40 mg tablet 40 mg PO BID AT 0800,1600 Fluid retention/Swelling 30 days #60 tabs 09/20/23
Acuicyn Eyelid Cleanser 1 ml topical BIDPRN PRN eye care 10/03/23
methyl salicylate 15 %-menthol 10 % topical cream (Muscle Rub) 1 applic topical BIDPRN PRN back and post neck 10/03/23
zinc oxide 20 % topical ointment 1 applic topical DAILY 10/03/23
Review of Systems
-
Unable to obtain full review of systems at this time due to: Other (Patient only able to tell me that he has to urinate, and is getting easily upset with additional questions)
Physical Exam
Vital Signs
Vital Signs
Temp Pulse Resp BP Pulse Ox
97.9 F 61 17 146/82 100
10/03/23 12:14 10/03/23 13:15 10/03/23 13:15 10/03/23 12:14 10/03/23 13:15
Physical Exam
General: Well Developed and Well Nourished
HEENT: NormoCephalic and Anicteric
Respiratory: Non Labored Respirations and Decreased Breath Sounds (bilateral bases)
Cardiac: S1/S2, Regular Rhythm and Murmur
GI: Soft, Non Tender and Other (Abdomen very protuberant)
Musculoskeletal: No Clubbing, No Cyanosis and No Edema
Skin: Other (Foam dressing LLE, RLE wrapped in Miguel)
Neuro: Awake, Alert and Other (Appears to move all four extremities appropriately)
Laboratory Results
-
10/03/23 12:32
10/03/23 12:32
Laboratory Results
Total Bilirubin Cancelled 10/03/23 12:32
AST Cancelled 10/03/23 12:32
ALT Cancelled 10/03/23 12:32
Alkaline Phosphatase Cancelled 10/03/23 12:32
Troponin I 0.296 ng/ml H* 10/03/23 12:38
Data Reviewed
-
Lab Data: Labs Reviewed by me
Old Records: Reviewed
Impression/Plan
-
Confusion
-Check ABG and UA with reflex to culture
Acute on Chronic Heart Failure with Mid-Range EF
-Echo September 2023: Global hypokinesis with EF 45-50%. Moderate Mitral and Tricuspid Regurgitation
-Consult Cardiology
-Suspect component of dietary non-compliance
-Continue Lasix 40mg IV BID
-Monitor Is&Os and Daily Weights
Non-Ischemic Myocardial Injury
-Continue to trend troponin
CHAD on CKD Stage III
-Suspect related to volume overload
-Hold Entresto
-Monitor bladder scans for urinary retention
-Recheck creatinine in AM
Coronary Artery Disease s/p stent
-Continue aspirin
Permanent Atrial Fibrillation s/p Pacemaker
-Monitor on Telemetry
-Continue Coreg
-Patient is not on anticoagulation due to fall risk
COPD / Pulmonary Hypertension - No acute exacerbation
-Continue sildenafil
-Continue albuterol prb
Essential Hypertension
-Continue carvedilol with hold parameters
Hyperlipidemia
-Continue pravastatin
BPH
-Continue dutasteride
-Monitor bladder scans
DVT proph:SC Heparin
Code Status: DNR/DNI
--- NOTE | 2023-10-03 14:45 | CM ---
Patient seen at bedside with Physician. Patient son stated that he had dinner last night with him and he was normal. Patient came to due to confusion. Per patient son, patient has resided at [facility] since last November. He has been
alert/oriented but very [place], and cannot place his own hearing aides due to poor hand dexterity. Son states patient also has poor strength in his legs and he feels that the patient has deteriorated in the last few years. He is assisted with ADLs and
is not ambulatory - he is w/c bound. Patient's DME are a w/c and [employer] portable O2. Patient has been getting PT/OT through [facility]. PCP - Aleja Antoine, Pharmacy is [facility]. Patient son continues to state that patient and family
have no intrest in going to a SNF at this time. CM will continue to follow for discharge planning needs.
Plan; Personal care; [facility] for SNF needs.
--- NOTE | 2023-10-03 14:48 | CON.CAR ---
Addendum entered and electronically signed by Brian Anderson DO 10/03/23 16:28:
I saw and examined the patient.
The Captain Assistant's note was reviewed and I agree with the note.
Comment:
Plan:
Confusion and lethargy and being worked up for infection and hypercapnea in setting of COPD
Blood gas pending
Possible acute on chronic HF
pBNP elevated but better than before
Possilbe wt up over 15 lbs but not clear accurate
Cr is up at 2.2 from baseline 1.7.
Will give lasix IV X 1 and assess response and cr.
Pending response and cr, may need to be considered for eventual right heart cath.
Cont to trend trop for possible nonMI trop, medical therapy
Cont Coreg, statin and ASA.
Perm AFib with v pacing, not anticoagulated due to falls. Cont ASA.
Cont tx of PHTN. On home O2 chronically.
Pt is DNR
Discussed with primary service.
Original Note:
Consultation
Consultation Request
Date/Time Consultation Requested: 10/03/2023
Date/Time Consultation Performed: 10/03/2023
Requesting Provider: Dr. Villafana
Performing Provider: Patricia Webster PA-C for Dr. Brian Anderson
Reason for Consultation: Heart failure with reduced ejection fraction
Medical History
-
History of Present Illness:
87-year-old male with a history for permanent A-fib, PPM, coronary artery disease, chronic HFpEF, COPD/pulmonary hypertension on chronic oxygen therapy, hypertension, hyperlipidemia, VA, depression, back pain polyp, nonobstructing, kidney stones,
inguinal hernia presents 10/03/2023 with short of breath, worsening fatigue and confusion at [facility]. Patient has had recurrent admissions for acute on chronic heart failure and COPD exacerbation/pneumonia including November 2022,
January 2023 and most recently 09/16/2023 to 09/20/2023. Recommended d/c to SNF however patient and son refused and he returned back to assisted living facility.
Brought in by EMS 10/03/2023. proBNP noted to be elevated at 14,900. Chest x-ray shows cardiomegaly with increased interstitial pulmonary markings and small bilateral pleural effusions consistent with volume overload. Troponin noted to be elevated
at 0.296. EKG shows ventricular paced rhythm. Reviewed with patient from facility patient was placed on regular diet and not low-sodium diet. At time of my evaluation patient appears confused. He is lying in bed yelling that he has to pee and is
having difficulty. Notes SOB
PMH:
chronic HF mildly reduced EF
Chronic kidney disease, stage 3b
CAD
s/p prior VA in 2008 and 2016 - details unclear
Permanent atrial fibrillation
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
s/p generator change
Pulmonary hypertension
HTN
HLD
COPD
h/o recurrent epistaxis
recurrent falls with recent cervical fracture
Moderate mitral regurgitation
Past Medical History
Past Medical History: Other (See HPI)
Past Surgical History: Cardiac (Prior cardiac stents in 2008, 2016, PPM) and Other (parathyroidectomy)
Social History
Tobacco: Former Smoker
Alcohol: None
Drug: None
Personal:
Living: Assisted Living ([facility])
Employment: Retired
Family History
Family History: Cancer
Allergies / Home Medications
Allergy/AdvReac Type Severity Reaction Status Date / Time
latex Allergy Rash Verified 03/15/23 16:20
Sulfa (Sulfonamide Allergy Rash Verified 03/15/23 16:20
Antibiotics)
�Medication �Instructions �Recorded �Confirmed �Type
allopurinol 100 mg tablet 100 mg PO DAILY Gout 12/01/22 10/03/23 History
cyclosporine 0.05 % eye drops in a 1 drp BOTH EYES Q12H DRY EYES 12/01/22 10/03/23 History
dropperette (Restasis)
docusate sodium 100 mg capsule 100 mg PO DAILYPRN PRN CONSTIPATION 12/01/22 10/03/23 History
(Colace)
dutasteride 0.5 mg capsule 0.5 mg PO DAILY Urinary Issue 12/01/22 10/03/23 History
fluticasone propionate 50 1 spray intranasal DAILYPRN PRN 12/01/22 10/03/23 History
mcg/actuation nasal allergic rhinitis
spray,suspension
hydrocortisone 1 % topical cream 1 applic PA BIDPRN PRN HEMORRHOIDS 12/01/22 10/03/23 History
(Preparation H Hydrocortisone)
pravastatin 80 mg tablet 80 mg PO DAILY High Cholesterol 12/01/22 10/03/23 History
sildenafil (pulm.hypertension) 20 20 mg PO TID PULM HYPERTENSION 12/01/22 10/03/23 History
mg tablet
zolpidem 5 mg tablet (Ambien) 5 mg PO HS Sleep 12/01/22 10/03/23 History
aspirin 81 mg chewable tablet 81 mg PO DAILY Heart 12/06/22 10/03/23 Rx
disease/condition #30 tabs
carvedilol 6.25 mg tablet 6.25 mg PO BID Heart Failure #60 12/06/22 10/03/23 Rx
tabs
acetaminophen 325 mg tablet 650 mg PO Q6HPRN PRN mild 01/27/23 10/03/23 History
pain/fever
psyllium 1 packet PO DAILY Constipation 01/27/23 10/03/23 History
albuterol sulfate 90 mcg/actuation 2 puff inhalation R Q4HPRN PRN sob 09/16/23 10/03/23 History
aerosol inhaler
bismuth subsalicylate 262 mg/15 mL 524 mg PO TIDPRN PRN upset stomach 09/16/23 10/03/23 History
oral suspension (Pepto-Bismol)
dextromethorphan-guaifenesin 10 10 ml PO Q4HPRN PRN cough 09/16/23 10/03/23 History
mg-100 mg/5 mL oral liquid
loperamide 2 mg tablet 2 mg PO Q8HPRN PRN diarrhea 09/16/23 10/03/23 History
(Anti-Diarrheal (loperamide))
menthol-herbal drugs lozenges 1 елена mucous membrane QIDPRN PRN 09/16/23 10/03/23 History
(Ricola lozenges) cough
polyethylene glycol 3350 17 gram 17 g PO DAILYPRN PRN constipation 09/16/23 10/03/23 History
oral powder packet
tramadol 50 mg tablet 50 mg PO Q6HPRN PRN mild pain 09/16/23 10/03/23 History
sacubitril 24 mg-valsartan 26 mg 1 tab PO BID Heart 09/18/23 10/03/23 History
tablet (Entresto) Disease/Condition
furosemide 40 mg tablet 40 mg PO BID AT 0800,1600 Fluid 09/20/23 10/03/23 Rx
retention/Swelling 30 days #60 tabs
Acuicyn Eyelid Cleanser 1 ml topical BIDPRN PRN eye care 10/03/23 10/03/23 History
methyl salicylate 15 %-menthol 10 1 applic topical BIDPRN PRN back 10/03/23 10/03/23 History
% topical cream (Muscle Rub) and post neck
zinc oxide 20 % topical ointment 1 applic topical DAILY 10/03/23 10/03/23 History
Review of Systems
-
History Source: Patient
All other systems: Negative unless noted
Physical Exam
Vital Signs
Temp Pulse Resp BP Pulse Ox
97.9 F 61 19 147/93 96
10/03/23 12:14 10/03/23 14:30 10/03/23 14:30 10/03/23 14:00 10/03/23 14:30
GEN: No distress, confused and screaming out to staff constantly
HEENT: supple, anicteric, mmm; very hard of hearing
LUNGS: Decreased BS at bases with fine crackles otherwise CTA, no wheezes/rales; wearing oxygen
CV: Reg, S1/S2, 2/6 murmur, no rub or gallops
ABD: soft, BS+, NT/ND
EXT: Trace to +1 bilateral lower extremity edema, red skin changes consistent with chronic stasis
NEURO: Confused, but able to tell me his name
SKIN: No rash, warm, dry, pink
Lab Results
10/03/23 12:32
Troponin I 0.296 ng/ml H* 10/03/23 12:38
Kpd-K-Yugbbikwayh Pept 33211 pg/ml 10/03/23 12:38
Impression / Plan
-
Family Physician:� Aleja Antoine, DO
Olive Pitter: Dr. Story
Impression:
Presents 10/03/2023 with confusion, weakness, shortness of breath
Acute on chronic HF mildly reduced EF, proBNP 30574
Recent admission for heart failure 09/16/2023, proBNP 61280
Acute on chronic kidney disease, stage 3b, creat 2.2
abnormal troponin, suspect nonischemic myocardial injury secondary to acute heart failure exacerbation, initial 0.296
CAD
s/p prior VA in 2008 and 2016 - details unclear
Permanent atrial fibrillation
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
s/p generator change
Pulmonary hypertension
HTN
HLD
COPD
h/o recurrent epistaxis
recurrent falls with recent cervical fracture
Moderate mitral regurgitation
Echo at [facility] 10/13/2022: EF 55-60%, mild
Echo 09/16/2023: EF 45 to 50%, mildly reduced EF with global hypokinesis. Moderate mitral regurgitation with mild mitral stenosis peak/mean gradient 7/2 mmHg with MV area 3.9 cm�. Moderate TR with PAP 49 mmHg
Echo 12/02/2022:�EF 65%, mod MR, mitral sclerosis without stenosis and mean gradient 2 mmHg, aortic sclerosis without stenosis and mild aortic regurgitation
Presented 10/03/2023 with confusion, lethargy, SOB.
Confusion and lethargy
-Very different than baseline this admission.
-Etiology unclear
-Blood gas pending
-Infectious workup in progress including UA as patient keeps complaining that he has to urinate
acute on chronic heart failure with mildly reduced ejection fraction.
-ProBNP 80995 which is elevated however better than previous admission where proBNP was greater than 17,100 on 09/16/23
-Does appear there may be some noncompliance with sodium diet at [facility]
-If bed scale accurate weight up 17 pounds compared to prior discharge weight. Although he does not look that volume overloaded
-Would give 40 mg IV Lasix x 1 now.
-Continue to follow daily weights, I&Os.
-Creat elevated at 2.2 on admission, baseline appearing to be around 1.7-1.8. Continue to monitor/trend
-In past patient and son felt he has less frequent HF exacerbations while on Entresto. Can place on hold given CHAD but ideally would like to see pt back on if renal function and BP allow
-Continue medical therapy with Coreg 6.25mg BID
- CHF education
Abnormal troponin elevation, initial 0.296. Suspect non-ischemic myocardial injury due to acute heart failure. Trend to peak
-no chest pain and ECG paced
-Now DNR continue conservative medical management w/ Coreg, pravastatin and aspirin.
history of pulmonary hypertension.
-On sildenafil 20mg TID
-On chronic home 2 L as outpatient
Permanent atrial fibrillation with ventricular pacing.
Not on OAC due to recurrent severe epistaxis and history of falls. Continue ASA 81 mg
Permanent pacemaker.
Device interrogated during earlier admission this month. Pacemaker stable leads and thresholds of the Medtronic device. No need to reinterrogate
Persistent scrotal edema which he tells me he has had for months and his urologist, Dr. Mathew in [place] recommended draining them. He has not gotten set up with a new urologist since relocating. Will defer to hospitalist.
Patient is now DNR/DNI which is reasonable given advanced age and multiple hospital admissions
HPI 10/03/2023:
87-year-old male with a history for permanent A-fib, PPM, coronary artery disease, chronic HFpEF, COPD/pulmonary hypertension on chronic oxygen therapy, hypertension, hyperlipidemia, VA, depression, back pain polyp, nonobstructing, kidney stones,
inguinal hernia presents 10/03/2023 with short of breath, worsening fatigue and confusion at [facility]. Patient has had recurrent admissions for acute on chronic heart failure and COPD exacerbation/pneumonia including November 2022,
January 2023 and most recently 09/16/2023 to 09/20/2023. Recommended d/c to SNF however patient and son refused and he returned back to assisted living facility.
Brought in by EMS 10/03/2023. proBNP noted to be elevated at 14,900. Chest x-ray shows cardiomegaly with increased interstitial pulmonary markings and small bilateral pleural effusions consistent with volume overload. Troponin noted to be elevated
at 0.296. EKG shows ventricular paced rhythm. Patient was provided 40 mg IV Lasix in the emergency department and reports good response. Reviewed with patient from facility patient was placed on regular diet and not low-sodium diet. At time of
my evaluation patient appears confused. He is lying in bed yelling that he has to pee and is having difficulty. Notes SOB
Data Reviewed
-
EKG: Report Reviewed by me, Discussed with Physician, Discussed with Nurse and Discussed with Patient
Radiology: Report Reviewed by me, Discussed with Physician, Discussed with Nurse and Discussed with Patient
Labs: Labs Reviewed by me, Discussed with Physician, Discussed with Nurse and Discussed with Patient
Old Records: Reviewed
[2023-10-03 16:04] LABS: B.E. -2.8 mmol/L; HCO3 20.6 mmol/L (21-28); O2 Saturation % 99.4 % (94-98); PCO2 31 mmHg (35-48); PO2 146 mmHg (83-108); pH 7.43 (7.35-7.45)
[2023-10-03 16:08] VITALS: BP 146/91
[2023-10-03 16:53] LABS: Urine Albumin 2+ (Neg - Trace); Urine Bilirubin Negative (Negative); Urine Character Clear (Clear); Urine Color Yellow; Urine Glucose Negative (Negative); Urine Ketone Negative (Negative); Urine Leukocyte 1+ (Negative); Urine Nitrite Negative (Negative); Urine Occult Blood Negative (Negative); Urine Specific Gravity 1.015 (<1.030); Urine Urobilinogen Negative (Neg - 1+)
[2023-10-03 17:02] LABS: ALT (SGPT) 17 U/L (0-50); AST (SGOT) 29 U/L (17-59); Albumin 3.8 g/dl (3.5-5.0); Alkaline Phosphatase 156 U/L (38-126); Direct Bilirubin 0.6 mg/dl (0.0-0.4); Potassium 5.1 mmol/L (3.5-5.1); Total Bilirubin 1.5 mg/dl (0.2-1.3); Total Protein 6.4 g/dl (6.3-8.2)
[2023-10-03 17:08] LABS: Urine Amorphous Seen; Urine Bacteria Few (Negative); Urine Mucus Few; Urine Red Blood Cell 0-2 /HPF (0-2)
[2023-10-03] MEDS: LASIX 40 MG IV (17:09)
[2023-10-03 18:14] VITALS: BP 150/90
[2023-10-03] MEDS: REVATIO 20 MG PO ×2 (18:29→21:25)
[2023-10-03] MEDS: HEPARIN 5000 UNITS SC ×2 (18:29→23:39)
[2023-10-03 19:24] LABS: Troponin I 0.645 ng/ml
[2023-10-03 19:46] VITALS: BP 146/93
[2023-10-03] MEDS: COREG 6.25 MG PO (20:15)
[2023-10-03] MEDS: TYLENOL 650 MG PO (21:25)
[2023-10-03] MEDS: AMBIEN 5 MG PO (21:25)
[2023-10-03 23:27] VITALS: BP 136/81
[2023-10-04 02:11] LABS: Troponin I 0.856 ng/ml
[2023-10-04 03:18] VITALS: BP 152/96
[2023-10-04 06:00] VITALS: BMI 28.0
[2023-10-04 06:42] LABS: Hematocrit 37.4 % (39.0-52.0); Hemoglobin 12.3 g/dL (13.0-18.0); Mean Corp Hgb Conc. 32.9 g/dL (33.0-37.0); Mean Corpuscular Hgb 31.1 pg (27.0-31.0); Mean Corpuscular Volume 94.4 fL (80.0-94.0); Mean Platelet Volume 12.1 fL (7.4-10.4); Platelet Count 172 10^3/uL (130-400); Red Blood Cell Count 3.96 10^6/uL (4.70-6.10)
[2023-10-04 07:17] LABS: Blood Urea Nitrogen 71 mg/dl (9-20); Calcium 10.1 mg/dl (8.4-10.2); Carbon Dioxide 22 mmol/L (22-30); Chloride 105 mmol/L (98-107); Estimated Creatinine Clearance 22 ml/min; Glucose 109 mg/dl (70-99); Magnesium 2.9 mg/dl (1.6-2.3); Sodium 139 mmol/L (135-145); eGFR 26.98
[2023-10-04 07:46] VITALS: BP 158/96
[2023-10-04] MEDS: METAMUCIL, KONSYL 1 PACKET PO (08:13)
[2023-10-04] MEDS: REVATIO 20 MG PO (08:13)
[2023-10-04] MEDS: LASIX 40 MG IV (08:13)
[2023-10-04] MEDS: PROSCAR 5 MG PO (08:14)
[2023-10-04] MEDS: COREG 6.25 MG PO (08:14)
[2023-10-04] MEDS: ZYLOPRIM 100 MG PO (08:14)
[2023-10-04] MEDS: PRAVACHOL 80 MG PO (08:19)
[2023-10-04] MEDS: LOW STRENGTH ASPIRIN 81 MG PO (08:19)
[2023-10-04] MEDS: HEPARIN 5000 UNITS SC (08:20)
--- NOTE | 2023-10-04 09:54 | W.PN.HOSP.TC ---
Today's Communication/Plan
-
Head CT
IV diuresis
Assessment / Plan
Assessment / Plan
GENERAL: well developed, well nourished, male confused, won't answer questions, fixated on finding his wheelchair
HEENT: NC/AT--no O2 NC
HEART: regular rate and rhythm, +S1, +S2
LUNGS : crackles bilaterally anteriorly (would not sit up for me)
ABDOM: soft, nontender, nondistended, + bowel sounds
EXT: no cyanosis, clubbing, or edema
apparent dementia
Confusion--unclear cause--infection, SOB, other---
-ABG without CO retention
-UA without e/o infection
-covid negative
-obtain head CT today
Acute on Chronic Heart Failure with Mid-Range EF--Echo September 2023: Global hypokinesis with EF 45-50%. Moderate Mitral and Tricuspid Regurgitation----
-suspect dietary non-compliance
-IV Lasix
Non-Ischemic Myocardial Injury--Continue to trend troponin
CHAD on CKD Stage III--Suspect related to volume overload--Hold Entresto--Monitor bladder scans for urinary retention--Recheck creatinine in AM
Coronary Artery Disease s/p stent--Continue aspirin
Permanent Atrial Fibrillation s/p Pacemaker--Continue Coreg--Patient is not on anticoagulation due to fall risk
COPD/Pulmonary Hypertension - No acute exacerbation--Continue sildenafil--Continue albuterol prb
Essential Hypertension--Continue carvedilol with hold parameters
Hyperlipidemia--Continue pravastatin
BPH--Continue dutasteride--Monitor bladder scans
DVT proph:SC Heparin
Code Status: DNR/DNI
Anticipated Discharge: > 48 hours
Subjective/Interval History
-
Date of Service: October 04, 2023
patient confused this morning, moaning in bed
Objective Data
-
Labs:
Laboratory Results
10/04/23
06:24
WBC 6.0
Hgb 12.3 L
Hct 37.4 L
Plt Count 172 D
Sodium 139
Potassium 5.0
Chloride 105
Carbon Dioxide 22
BUN 71 H
Creatinine 2.3 H
Glucose 109 H
Calcium 10.1
Vital Signs:
Vital Signs
Temp Pulse Resp BP Pulse Ox
97.0 F 61 18 158/88 93
10/04/23 05:40 10/04/23 08:14 10/04/23 07:46 10/04/23 08:14 10/04/23 07:46
I&O
10/03/23 10/04/23 10/05/23
06:59 06:59 06:59
Intake Total 200 / 200
Output Total 175 / 175
Balance 25 / 25
Review of Systems
-
History Source: Patient
All other systems: Reviewed and negative
Data Reviewed
-
Diagnostic Radiology: Report Reviewed by me
Labs: Labs Reviewed by me
--- NOTE | 2023-10-04 10:00 | PTCARENOTE ---
Patient awake and oriented X1, oriented to self, disoriented to situation, time and place. denies pain and discomfort thus far. Lungs are clear on room air, even and unlabored respiration. Positive bowl sound X4 quadrants. As per son his father is
normally oriented X3, concern elevated to MD. New order placed. Will continue to monitor.
[2023-10-04 11:31] VITALS: BP 148/95
--- NOTE | 2023-10-04 11:47 | W.PN.UPDATE ---
Update Note
Progress Note Update
I spoke to son, Ronnie, at bedside. Patient uncomfortable, moaning and sedated. Son would like comfort care/hospice. I expressed patient will likely pass in hospital in manner of hours to days. I expressed that I do not know process making him
so confused, may be large stroke but son does not wish to pursue further testing as would not make a difference in prognosis and he appears uncomfortable currently.
IV morphine PRN ordered with progression to gtt if necessary
hospice consulted
--- NOTE | 2023-10-04 11:47 | CM ---
Patient son at bedside, with physician. Patient for comfort care/hospice assessment. CM sent referral to [facility] hospice, await call back from Liaison to meet with patient son. CM will continue to follow for discharge planning needs.
Plan; hospice vs comfort care
[2023-10-04] MEDS: MORPHINE SULFATE 2 MG IV ×3 (11:52→17:45)
--- NOTE | 2023-10-04 11:59 | W.PN.UPDATE ---
Addendum entered and electronically signed by Aram Oliver MD 10/04/23 13:35:
I saw and examined the patient.
The [employer] or PA's note was reviewed and I agree with the note.
Comment: General: Awake but confused
Discussed with brother in room. Agree with comfort care. Will sign off..
Original Note:
Update Note
Progress Note Update
Patient confused. Moaning, uncomfortable. Head CT negative for acute stroke. ABG without CO2 retention. Urine analysis without infection. COVID-negative. Unclear cause of recent mental change. However the patient has been declining over the
last several months. Patient's son Ronnie at bedside and he expresses he would like to proceed with comfort care hospice. Cardiology will sign off.
--- NOTE | 2023-10-04 12:43 | HOSPNOTE ---
Spoke with son and explained hospice services. I spoke with Attending Dr Franklin and we both agree patient is actively dying and will be placed on comfort. I called admissions and tried to get the patient a private room. Spoke to floor RN and asked
her to medicate patient with morphine. The patient has cyanotic nail beds and bilateral feet are cold and mottled. Will continue to support son.
[2023-10-04] MEDS: MORPHINE 100 IV (13:30)
[2023-10-04 15:32] VITALS: BP 168/92
--- NOTE | 2023-10-04 15:45 | PTCARENOTE ---
Received patient to 2N from 4W on a Morphine gtt, started on step 1. Patient seems calm and comfortable; drowsy but able to answer short/simple questions. Family at bedside.
[2023-10-04] MEDS: BENADRYL 12.5 MG IV (18:28)
[2023-10-04] MEDS: NSS (PRESERVATIVE FREE) 0.25 ML IV (18:28)
[2023-10-04] MEDS: ATIVAN 0.5 MG IV (18:29)
[2023-10-04 22:02] VITALS: BP 125/79
[2023-10-05] MEDS: MORPHINE SULFATE 2 MG IV ×2 (04:06→04:34)
[2023-10-05] MEDS: BENADRYL 12.5 MG IV (04:34)
[2023-10-05] MEDS: ROBINUL 0.200000000000000011 MG IV (06:47)
[2023-10-05] MEDS: TRANSDERM-SCOP 1 PATCH TRANSDERM (06:49)
[2023-10-05 07:40] VITALS: BP 86/56
--- NOTE | 2023-10-05 09:48 | W.PN.DEATH ---
Pronouncement of
-
Called to see patient to pronounce.
No spontaneous heart tones or respirations noted.
Patient not responsive to verbal stimuli.
Patient is pronounced .
Time of : 08:55
Date of : 10/05/23
Cause of : acute on chronic systolic CHF exacerbation, CHAD, non-ischemic myocardial injury
Family Notified: Yes (at bedside)
--- NOTE | 2023-10-05 09:52 | CM ---
Patient this am. Physician met with patient son and daughters. Patient son indicated that he has no further concerns at this time. Family is calling patient family to update. CM will continue to follow for discharge planning needs.
Plan: .
--- NOTE | 2023-10-05 10:29 | PTCARENOTE ---
pt at 854, family notified staff later at 0930, doctor notified at that time. DONNY called and paper in the chart.
--- NOTE | 2023-10-05 15:58 | W.DCSUMMARY ---
Discharge Summary
Discharge Data
Date of Admission: 10/03/23
Date of Discharge: 10/05/23
-
Pending Results: No
Hospital Course
Primary care physician : Aleja Antoine
Principal and Chronic Discharge diagnosis : Acute on chronic congestive heart failure with midrange ejection fraction, nonischemic myocardial injury, acute kidney injury on chronic kidney disease stage III, coronary artery disease status post
stents, permanent atrial fibrillation status post pacemaker, chronic obstructive pulmonary disease with pulmonary hypertension, essential hypertension, hyperlipidemia, benign prostatic hyperplasia, confusion
Hospital Course : Patient was an 87-year-old male with a past medical history for mixed congestive heart failure, permanent atrial fibrillation who presented from assisted living for increasing fatigue and shortness of breath. He presented via EMS
who informed the ED per family that he appeared acutely confused. Patient was admitted from September 15 to September 20, 2023 for heart failure exacerbation. Workup in the emergency department at the time of admission showed elevated proBNP of 14,900 which was
less than his usual, his weight was also up 8 kg from prior hospitalization according to the ED scales. Troponin was elevated at 0.2. Patient could not provide much in the way of history and was more focused on needing to urinate at the time of
admission.
Patient was admitted and seen in consultation by cardiology. Other etiologies besides congestive heart failure were entertained which included hypercapnia in the setting of chronic obstructive pulmonary disease as well as infection as cause of
confusion. Arterial blood gas was done which showed a pH of 7.43 pCO2 of 31 with a pO2 of 146 and therefore hypercapnia was ruled out. Other than a positive MRSA screen, all cultures were negative as well.
Patient declined on October 04, [address] Cyn Franklin spoke to the patient's son Ronnie at bedside. Patient was moaning, uncomfortable and the patient's son wanted comfort care and hospice. Family refused further workup regarding the etiology of
his confusion and morphine was started as needed.
Patient at 8:55 AM on October 05, 2023 from acute on chronic systolic congestive heart failure exacerbation, acute kidney injury, nonischemic myocardial injury. Family was at the bedside.
Discharge Plan
-
Patient Disposition:
Date/Time
Date/Time: 10/05/23 08:55
Discharge Date and Time
Discharge Date/Time: 10/05/23 08:55
Print Language: TELUGU
== END 2023-10-05 08:55 | disposition expired | DRG 291 ==
LOC: 2 NORTH 14:34
PROVIDERS: Physician Assistant Medical; ADMITTING PHYSICIAN Internal Medicine; CONSULT PHYSICIAN Nuclear Medicine Nuclear Cardiology; EMERGENCY PHYSICIAN Emergency Medicine; FAMILY PHYSICIAN Hospitalist
DX: I13.0 Hypertensive heart and chronic kidney disease with heart failure and stage 1 through stage 4 chronic kidney disease, or unspecified chronic kidney disease (principal); I50.23 Acute on chronic systolic (congestive) heart failure; I48.21 Permanent atrial fibrillation; N17.9 Acute kidney failure, unspecified; Z51.5 Encounter for palliative care; R53.83 Other fatigue; I25.10 Atherosclerotic heart disease of native coronary artery without angina pectoris; N18.32 Chronic kidney disease, stage 3b; I27.20 Pulmonary hypertension, unspecified; J44.9 Chronic obstructive pulmonary disease, unspecified; E78.00 Pure hypercholesterolemia, unspecified; I5A Non-ischemic myocardial injury (non-traumatic); N40.1 Benign prostatic hyperplasia with lower urinary tract symptoms; R33.8 Other retention of urine; I08.1 Rheumatic disorders of both mitral and tricuspid valves; R09.02 Hypoxemia; R06.89 Other abnormalities of breathing; M10.9 Gout, unspecified; R29.6 Repeated falls; R26.2 Difficulty in walking, not elsewhere classified; Z66 Do not resuscitate; Z87.891 Personal history of nicotine dependence; Z95.0 Presence of cardiac pacemaker; I25.2 Old myocardial infarction; Z95.5 Presence of coronary angioplasty implant and graft; Z11.52 Encounter for screening for COVID-19; Z91.040 Latex allergy status; Z88.2 Allergy status to sulfonamides; Z99.81 Dependence on supplemental oxygen; Z91.119 Patient's noncompliance with dietary regimen due to unspecified reason
CPT/HCPCS: 70450; 71045; 80048; 80076; 81003; 81015; 82805; 83735; 83880; 84132; 84484; 85025; 85027; 87070; 87086; 87147; 87811; 93005; 99285